=== PATIENT | male | born 1955 | race Caucasian/White ===

== ENCOUNTER → 2021-06-07 08:52 | Outpatient (BNVA) | payer MEDICARE, SELFPAY | PROVIDERS: PCP Family Medicine; Referring Provider Family Medicine; Visit Provider Internal Medicine Cardiovascular Disease | DX: I71.2 Thoracic aortic aneurysm, without rupture (principal) | CPT/HCPCS: 93005 ==

== ENCOUNTER → 2021-06-07 12:55 | Outpatient (REF) | payer MEDICARE, SELFPAY ==
--- NOTE | 2021-06-07 13:03 | CA_ITS ---
Transthoracic Echocardiogram Patient (Last, First, Middle): Andrew Abreu L Gender: Male Date of : 1955 Age: 66 Procedure Date: 06/07/2021 Procedure Type: Transthoracic Echocardiogram Location: OP Height: 172.72 cm Weight: 74.84 kg BSA: 1.88 m2 Heart Rate: bpm BP: 118 / 77 mmHg Yardage Control Clerk: AKOSUA/TOPHER Referring MD: Brandon Hernandez MD Symptoms: I71.2 - Thoracic aortic aneurysm, without rupture Study Quality: Fair ECG Rhythm: Sinus Conclusions: - The left ventricular systolic function is normal. The calculated ejection fraction is 60% by biplane method. - There is moderate calcification of the aortic valve. - There is moderate mitral annular calcification. - There is mild dilatation of the ascending aorta measuring 4.00 cm. Findings Left Ventricle Normal left ventricular cavity size. There is normal left ventricular wall thickness. The left ventricular systolic function is normal. The calculated ejection fraction is 60% by biplane method. There is no evidence of regional wall motion abnormalities. Diastolic function is normal for age. Right Ventricle Normal right ventricular cavity size. There is low normal right ventricular systolic function. Atria Both atria are normal in size. Aortic Valve There is moderate calcification of the aortic valve. The peak aortic velocity is 2.02 m/s with a calculated peak gradient of 16 mmHg. The mean gradient is 6 mmHg. The aortic valve area is 2.92 cm2. There is trace (trivial) aortic valve regurgitation. Mitral Valve There is moderate mitral annular calcification. There is mild mitral valve regurgitation. There is no mitral valve stenosis. Pulmonic Valve The pulmonic valve was not well visualized. Tricuspid Valve Normal tricuspid valve structure. There is trace tricuspid valve regurgitation. The pulmonary artery systolic pressure is normal. Great Vessels There is mild dilatation of the ascending aorta measuring 4.00 cm. Venous The inferior vena cava is normal in size and collapses greater than 50% with inspiration. Pericardium/Pleural There is no evidence of pericardial effusion. Prior Study Comparison No significant change compared to prior study dated: 06/15/2020. Measurements 2D Linear Measurements IVSd: 0.83 0.6-0.9/0.6-1.0 cm LVIDd: 4.08 3.9-5.3/4.2-5.9 cm LVIDd Index: 2.17 2.4-3.2/2.2-3.1 cm/m2 LVIDs: 2.88 2.0-3.6 cm LVPWd: 0.98 0.7-1.1 cm Ao Root: 3.00 2.1-3.5 cm LA Diam: 3.00 2.7-3.8/3.0-4.0 cm LAIDs Index: 1.60 1.5-2.3 cm/m2 LV Mass: 142.74 67-162/88-224 g LV Mass Index: 75.93 43-95/49-115 g/m2 LVOT Diam: 2.20 3.0+(-)1.3 cm 2D Systolic Function EF 4C: 51.50 >55% EF 2C: 66.90 >55% EF BiP: 59.70 >55% Mitral Valve MV Pk E: 0.75 MV PK A: 0.62 MV Decel Time: 377.00 E/A: 1.20 E'Lateral: 14.60 E'Medial: 9.57 E/E' Med: 7.80 E/E' Lat: 5.10 PHT: 110.00 MVA PHT: 2.00 Decel [place]: 1.98 Aortic Valve AoV Pk Michael: 2.02 AoV Mn Michael: 1.11 AoV VTI: 0.36 AoV Pk Grad: 16.00 Aov Mn Grad: 6.00 EUGENE Cont.VTI: 2.92 AI Pk Michael: 3.79 AI [place]: 2.14 LVOT LVOT Pk Michael: 1.47 LVOT Mn Michael: 0.82 LVOT VTI: 0.28 LVOT Pk Grad: 9.00 LVOT Mn Grad: 4.00 LVOT Diam: 2.20 LVOT Area: 3.80 Diastolic Function MV Pk E: 0.75 MV Pk A: 0.62 E/A: 1.20 E'Medial: 9.57 E/E' Med: 7.80 E' Laterial: 14.60 E/E' Lat: 5.10 Tricuspid Valve TR Pk Michael: 2.19 TR Pk Grad: 19.00 RA Press: 3.00 RVSP: 22.00 Great Vessels Aorta Ao Root-2D: 3.00 2.0-3.7 cm Ao Asc: 4.00 2.1-3.4 cm Ao Arch: 3.00 Updated in Other Vendor System with Status of Final Checo Sanders MD electronically signed on 06/09/2021 11:46:32 AM with status of Final
== END ==
LOC: HO.CARD 12:55
PROVIDERS: Visit Provider Internal Medicine Cardiovascular Disease
DX: Z01.818 Encounter for other preprocedural examination (principal); I71.2 Thoracic aortic aneurysm, without rupture; I25.10 Atherosclerotic heart disease of native coronary artery without angina pectoris
CPT/HCPCS: 93005; 93306; 99212

== ENCOUNTER → 2021-06-14 08:59 | Outpatient (REF) | payer MEDICARE, SELFPAY ==
--- NOTE | ~2021-06-14 | NM_ITS ---
Myocardial perfusion study Indication: Preoperative cardiovascular risk patient with prior coronary bypass grafting to evaluate for myocardial ischemia Technique: The patient was brought in for a Lexiscan perfusion study on 06/14/2021. Patient performed low-level exercise and was injected 0.4 mg of Lexiscan intravenously. Within a minute of injection, 25 mCi of sestamibi was given intravenously. Images were obtained using the SPECT gamma camera interlaced with the gating device. Images were obtained in supine position. Resting perfusion study was performed on 06/15/2021. Patient was administered 25 mCi of sestamibi intravenously at rest. Images were then obtained in supine position. Images obtained with and without CT attenuation. Total DLP 74 mGy-cm. Images were processed with the software and compared side to side in short axis, horizontal long axis and vertical long axis views. Findings: The stress perfusion study showed nonattenuated images show minimally reduced uptake in the basal inferoseptal region of the LV myocardium. Remainder of the LV myocardium is normally perfused. Attenuation corrected images show normal uptake of radiotracer in all segments of LV myocardium. The gated study shows normal LV systolic function with calculated LVEF of 70%. LV cavity is normal in size. The gated study shows normal systolic wall thickening and contraction of segments. Resting study shows no change in perfusion pattern compared to stress perfusion study. Gating at rest reveals normal systolic wall motion with ejection fraction at 57%. The findings are consistent with normal myocardial perfusion. NM/NM jack perf SPECT rest & str Impression: 1. Myocardial perfusion imaging study shows normal myocardial perfusion 2. Gated LVEF is 70% 3. Transient ischemic dilatation not present EKG is nondiagnostic for ischemia
--- NOTE | 2021-06-14 09:04 | CA_ITS ---
Acquisition Time: 2021-06-14 09:13:35 Total Exercise Time: 00:02:00 Test Indications: PREOP Medications: SEE CHART Protocol: LEXISCAN Max HR: 097 BPM 62% of Pred: 154 BPM Max BP: 118/060 mmHG Max Work Load: 1.0 METS Pharmacological stress test using Lexiscan while sitting and kicking his feet. Pt tolerated well, denies any anginal sx. EKG with isolated PVC's. Non-diagnostic for ischemia. Nuclear images to follow. Normotensive response to test. Test reviewed with Dr. Hernandez. Referred By: Brandon Hernandez Overread By: Sandra Lugo NP
== END ==
LOC: HO.CARD 08:59
PROVIDERS: PCP Family Medicine; Visit Provider Internal Medicine Cardiovascular Disease
DX: Z01.811 Encounter for preprocedural respiratory examination (principal); I25.10 Atherosclerotic heart disease of native coronary artery without angina pectoris
CPT/HCPCS: 78452; 93017; A9500; J0280; J2785

== ENCOUNTER 2021-11-01 07:57 | Outpatient (REF) | payer MEDICARE, SELFPAY | END 2021-11-01 07:58 | disposition home or self-care (01) | LOC: HO.HMGCLDS 07:57 | PROVIDERS: PCP Family Medicine; Visit Provider Internal Medicine | DX: Z20.822 Contact with and (suspected) exposure to COVID-19 (principal) | CPT/HCPCS: C9803; U0003; U0005 ==

== ENCOUNTER → 2022-06-07 08:24 | Outpatient (BNVA) | payer MEDICARE, SELFPAY | PROVIDERS: PCP Family Medicine; Referring Provider Family Medicine; Visit Provider Internal Medicine Cardiovascular Disease | DX: I25.10 Atherosclerotic heart disease of native coronary artery without angina pectoris (principal); I71.2 Thoracic aortic aneurysm, without rupture; Z79.82 Long term (current) use of aspirin; Z79.899 Other long term (current) drug therapy | CPT/HCPCS: 93005; 99212 ==

== ENCOUNTER → 2023-05-20 07:43 | Outpatient (REF) | payer MEDICARE, SELFPAY ==
--- NOTE | 2023-05-20 07:45 | CA_ITS ---
Transthoracic Echocardiogram Patient (Last, First, Middle): Andrew Abreu L Gender: Male Date of : 1955 Age: 68 Procedure Date: 05/20/2023 Procedure Type: Transthoracic Echocardiogram Location: OP Height: 172.72 cm Weight: 77.11 kg BSA: 1.91 m2 Heart Rate: 58 bpm BP: 125 / 70 mmHg Instructor Dramatic Arts: TEO Referring MD: Brandon Hernandez MD Symptoms: I71.2 - Thoracic aortic aneurysm, without rupture Study Quality: Fair ECG Rhythm: Bradycardia Conclusions: - The left ventricular systolic function is normal. The visually estimated ejection fraction is between 60-65%. - There is mildly decreased right ventricular systolic function. - There is moderate calcification of the aortic valve. - There is moderate mitral annular calcification. - There is mild dilatation of the ascending aorta measuring 4.00 cm. Findings Left Ventricle Normal left ventricular cavity size. There is mildly increased left ventricular wall thickness. The left ventricular systolic function is normal. The visually estimated ejection fraction is between 60-65%. There is no evidence of regional wall motion abnormalities. Diastolic function is normal for age. LV peak GLS -18.6%. Right Ventricle Normal right ventricular cavity size. There is mildly decreased right ventricular systolic function. Atria Both atria are normal in size. Aortic Valve There is moderate calcification of the aortic valve. There is no aortic valve stenosis. Trace to mild aortic regurgitation. Mitral Valve There is moderate mitral annular calcification. There is mild mitral valve regurgitation. There is no mitral valve stenosis. Pulmonic Valve The pulmonic valve is likely normal. Tricuspid Valve There is mild tricuspid valve regurgitation. There is no evidence of pulmonary hypertension. Great Vessels The aortic arch is normal in size. There is mild dilatation of the ascending aorta measuring 4.00 cm. Venous The inferior vena cava is normal in size and collapses greater than 50% with inspiration. Pericardium/Pleural There is no evidence of pericardial effusion. Prior Study Comparison No significant change compared to prior study dated: 06/07/2021. Measurements 2D Linear Measurements IVSd: 1.06 0.6-0.9/0.6-1.0 cm LVIDd: 4.85 3.9-5.3/4.2-5.9 cm LVIDd Index: 2.54 2.4-3.2/2.2-3.1 cm/m2 LVIDs: 3.02 2.0-3.6 cm LVPWd: 1.02 0.7-1.1 cm LA Diam: 3.90 2.7-3.8/3.0-4.0 cm LAIDs Index: 2.04 1.5-2.3 cm/m2 LV Mass: 227.48 67-162/88-224 g LV Mass Index: 119.10 43-95/49-115 g/m2 LVOT Diam: 2.10 3.0+(-)1.3 cm 2D Systolic Function EF 4C: 54.80 >55% EF 2C: 56.60 >55% Mitral Valve MV VTI: 0.40 MV Pk Michael: 1.08 MV Mn Michael: 0.68 MV Pk Grad: 5.00 MV Mn Grad: 2.00 MV Pk E: 1.16 MV PK A: 0.83 MV Decel Time: 203.00 E/A: 1.40 E'Lateral: 10.80 E'Medial: 9.03 E/E' Med: 12.80 E/E' Lat: 10.70 PHT: 60.00 MVA PHT: 3.67 MVA Continuity: 2.42 Decel [place]: 5.72 Aortic Valve AoV Pk Michael: 1.91 AoV Mn Michael: 1.32 AoV VTI: 0.45 AoV Pk Grad: 15.00 Aov Mn Grad: 8.00 EUGENE Cont.VTI: 2.14 AI Pk Michael: 3.79 AI [place]: 1.92 LVOT LVOT Pk Michael: 1.15 LVOT Mn Michael: 0.79 LVOT VTI: 0.28 LVOT Pk Grad: 5.00 LVOT Mn Grad: 3.00 LVOT Diam: 2.10 LVOT Area: 3.46 Diastolic Function MV Pk E: 1.16 MV Pk A: 0.83 E/A: 1.40 E'Medial: 9.03 E/E' Med: 12.80 E' Laterial: 10.80 E/E' Lat: 10.70 Right Ventricle TAPSE (mm): 16.90 TVS' Michael: 7.38 Tricuspid Valve TR Pk Michael: 2.24 TR Pk Grad: 20.00 RA Press: 3.00 RVSP: 23.00 Great Vessels Aorta Sinus of Valsalva: 3.40 2.0-3.5 cm Ao Asc: 4.00 2.1-3.4 cm Pulmonary Valve PV Pk Michael: 1.09 Peak PV Grad: 5.00 Updated in Other Vendor System with Status of Final Checo Sanders MD electronically signed on 05/21/2023 12:30:25 PM with status of Final
== END ==
LOC: HO.CARD 07:43
PROVIDERS: PCP Family Medicine; Visit Provider Internal Medicine Cardiovascular Disease
DX: I71.20 Thoracic aortic aneurysm, without rupture, unspecified (principal)
CPT/HCPCS: 93306; 93356

== ENCOUNTER 2023-06-24 14:26 | Outpatient (AMB) | payer MEDICARE, SELFPAY ==
[2023-06-24 14:30] VITALS: BP 120/70; PULSE 64; BMI 26.8
--- NOTE | 2023-06-24 14:30 | A.OFFVIS_ITS ---
Intake Vital Signs 06/24/23 14:30 Height 5 ft 8 in Weight 176 lb 5.917 oz BMI 26.8 BP 120/70 Blood Pressure Location Lt brachial Position Sitting Pulse 64 Intake Visit Reasons: 1 year follow up Intake Note: 1 year f/u Skid Strapper Required: No Allergies penicillin G Allergy (Unknown, Verified 06/24/23 14:39) rash penicillin V Allergy (Unknown, Verified 06/24/23 14:39) rash, itchy Penicillins [PENICILLINS] Allergy (Unknown, Verified 06/24/23 14:39) RASH, ITCHY Medication List - Last Reconciled 06/24/23 by Brandon Hernandez MD acetaminophen (Tylenol Extra Strength) 500 mg PO Q6H PRN aspirin (Adult Aspirin Regimen) 81 mg PO DAILY cholecalciferol (vitamin D3) 50 mcg PO DAILY coQ10 (ubiquinol) 200 mg PO .QOD ezetimibe (Zetia) 10 mg PO DAILY fluticasone propionate 50 mcg/actuation 1 spray intranasal DAILY mecobalamin (vitamin B12) 2,500 mcg PO DAILY rosuvastatin 10 mg PO BEDTIME sildenafil (Viagra) 50 mg PO DAILY PRN HPI HPI Comments History of Present Illness Details Andrew comes for follow-up. He continues to remain very active. Recent echocardiogram shows normal systolic function was stable ascending aortic aneurysm. Most recent LDL was 72 mg/dL. Takes all his medications. He denies any exertional chest pain or shortness of breath. Denies any prolonged palpitation irregular heartbeat. Denies any orthopnea, PND, leg edema. No lightheadedness, syncope. [facility] Medical History CAD (coronary artery disease) Hyperlipidemia Thoracic aortic aneurysm Surgical History History of total left knee replacement S/P CABG x 4 Family History Mother Dementia Father Alzheimer disease Social History Alcohol intake: current Alcohol intake frequency: a few times a week Alcohol type: beer and wine Patient Tobacco Use Status: Never used Tobacco Review of Systems ENT Reports dizziness Card Denies chest pain, Denies chest pain at rest, Denies chest pain with activity, Denies rapid heart rate, Denies pedal edema, Denies edema, Denies leg edema, Denies lightheadedness, Denies palpitations, Denies dyspnea, Denies dyspnea on exertion and Denies orthopnea Resp Denies cough, Denies dyspnea and Denies dyspnea on exertion GI Denies hematochezia and Denies change in stool character Musc Denies abnormal gait, Reports limited range of motion, Reports muscle cramps, Denies muscle weakness, Denies numbness, Denies radiating pain into limb, Denies stiffness and Denies tingling Neuro Denies abnormal gait, Reports dizziness, Denies numbness and Denies tingling Endo Denies palpitations Physical Exam Vital Signs: Last Vital Signs Pulse 64 06/24/23 14:30 BP 120/70 06/24/23 14:30 BMI result Body Mass Index 26.8 Const General: cooperative, comfortable, no acute distress, well developed, alert and awake Nutritional Appearance: average body habitus Orientation/consciousness: patient oriented x3 Limitations: no limitations Neck Neck: Yes trachea midline, Yes supple and Yes no JVD Resp Effort & Inspection: normal respiratory effort Auscultation: clear to auscultation bilaterally Cardio Jugular venous distension: no JVD Palpation: normal PMI Rate: regular rate Rhythm: regular rhythm Heart sounds: S1 normal heart sound present, S2 normal heart sound present and Murmur heart sound present systolic early, decrescendo, crescendo, harsh and at the right sternal border GI Auscultation: normal bowel sounds Skin General skin exam: no rashes or lesions noted Neuro General: patient oriented x3 and no focal motor deficits Extrem General: Yes no clubbing, cyanosis or edema Psych Appearance: grossly normal Office Procedures EKG Details: EKG shows normal sinus rhythm with normal EKG [id number], Complete Assessment & Plan Assessment & Plan (1) CAD (coronary artery disease): Code(s): I25.10 - Atherosclerotic heart disease of [place] coronary artery without angina pectoris Plan: CAD status post coronary artery bypass grafting with no current concerning symptoms. Signs and symptoms of angina were discussed advised to call me with any new symptoms. Continue aggressive medical therapy. Continue low-dose aspirin therapy for life. Target goal LDL less than 70 mg/dL. Advised to intensify lifestyle modification. Continue aggressive blood pressure control which is currently well optimized. Advised to monitor blood pressure at home maintain a log. Goal blood pressure less than 130/84. Advised to maintain activity level as tolerated. (2) Thoracic aortic aneurysm: Comment: 4 cm Code(s): I71.2 - Thoracic aortic aneurysm, without rupture Plan: Thoracic aortic aneurysm which is mild at 4 cm. Advised to monitor by echocardiogram on annual basis. No interventions required at this point time. Continue aggressive vascular risk factor modification above. Avoid sudden strenuous isometric exercise. Follow up in the clinic in 1 year's time, sooner p.r.n.. Thank you for allowing me to partake in his care Orders: Orders CA echo transthoracic complete 50 Weeks I71.2 - Thoracic aortic aneurysm, without rupture Coding Level of Care Code Est Pt Level 4 (03286) Diagnoses CAD (coronary artery disease) I25.10 Thoracic aortic aneurysm I71.2 CPT Codes EKG - CPT: 58440-[id number], Complete ([id number])
== END 2023-06-24 15:01 | disposition home or self-care (01) ==
PROVIDERS: Visit Provider Internal Medicine Cardiovascular Disease
DX: I25.10 Atherosclerotic heart disease of native coronary artery without angina pectoris (principal); I71.20 Thoracic aortic aneurysm, without rupture, unspecified
CPT/HCPCS: 93010; 99214

== ENCOUNTER → 2023-06-24 14:26 | Outpatient (BNVA) | payer MEDICARE, SELFPAY | PROVIDERS: Visit Provider Internal Medicine Cardiovascular Disease | DX: I25.10 Atherosclerotic heart disease of native coronary artery without angina pectoris (principal); I71.20 Thoracic aortic aneurysm, without rupture, unspecified | CPT/HCPCS: 93005; 99212 ==

== ENCOUNTER 2024-03-18 06:29 | Outpatient (REF) | payer MEDICARE, SELFPAY ==
[2024-03-18 08:14] LABS: Cholesterol 138 mg/dL (<200); HDL Cholesterol 54 mg/dL (>40); LDL Cholesterol Calculated 69 mg/dL (<100); Triglycerides 75 mg/dL (<150)
== END 2024-03-18 06:30 | disposition home or self-care (01) ==
LOC: HO.LAB 06:29
PROVIDERS: Visit Provider Internal Medicine Cardiovascular Disease
DX: I25.10 Atherosclerotic heart disease of native coronary artery without angina pectoris (principal)
CPT/HCPCS: 36415; 80061

== ENCOUNTER → 2024-06-08 10:58 | Outpatient (REF) | payer MEDICARE, SELFPAY ==
--- NOTE | 2024-06-08 11:01 | CA_ITS ---
Transthoracic Echocardiogram Amended Patient (Last, First, Middle): Andrew Abreu L Gender: Male Date of : 1955 Age: 69 Procedure Date: 06/08/2024 Procedure Type: Transthoracic Echocardiogram Location: OP Height: 172. cm Weight: 79.38 kg BSA: 1.93 m2 Heart Rate: 63 bpm BP: 122 / 60 mmHg Spike Machine Operator: TEO Referring MD: Brandon Hernandez MD Symptoms: I71.2 - Thoracic aortic aneurysm, without rupture Study Quality: Fair ECG Rhythm: Sinus Conclusions: - The left ventricular systolic function is normal. The visually estimated ejection fraction is between 65-70%. - There is mild to moderately decreased right ventricular systolic function. - There is moderate calcification of the aortic valve. There is mild aortic valve stenosis. Appearance suggestive of bicuspid aortic valve. - There is severe mitral annular calcification. - There is mild dilatation of the ascending aorta measuring 3.80 cm. Findings Left Ventricle Normal left ventricular cavity size. There is moderately increased left ventricular wall thickness. The left ventricular systolic function is normal. The visually estimated ejection fraction is between 65-70%. There is no evidence of regional wall motion abnormalities. Diastolic function is normal for age. Right Ventricle Normal right ventricular cavity size. There is mild to moderately decreased right ventricular systolic function. Atria Both atria are normal in size. Aortic Valve There is moderate calcification of the aortic valve. There is mild aortic valve stenosis. There is trace (trivial) aortic valve regurgitation. Appearance suggestive of bicuspid aortic valve. Mitral Valve There is severe mitral annular calcification. There is no mitral valve regurgitation. There is no mitral valve stenosis. Pulmonic Valve The pulmonic valve is likely normal. Tricuspid Valve Normal tricuspid valve structure. There is mild tricuspid valve regurgitation. There is no evidence of pulmonary hypertension. Great Vessels The aortic annulus and sinuses of valsalva are normal in size. There is mild dilatation of the ascending aorta measuring 3.80 cm. Venous The inferior vena cava is normal in size and collapses greater than 50% with inspiration. Pericardium/Pleural There is no evidence of pericardial effusion. Prior Study Comparison Changes noted compared to prior study dated: 05/20/2023. see comment on aortic valve. Measurements 2D Linear Measurements IVSd: 1.37 0.6-0.9/0.6-1.0 cm LVIDd: 4.54 3.9-5.3/4.2-5.9 cm LVIDd Index: 2.35 2.4-3.2/2.2-3.1 cm/m2 LVIDs: 2.50 2.0-3.6 cm LVPWd: 1.27 0.7-1.1 cm LA Diam: 4.00 2.7-3.8/3.0-4.0 cm LAIDs Index: 2.07 1.5-2.3 cm/m2 LV Mass: 287.63 67-162/88-224 g LV Mass Index: 149.03 43-95/49-115 g/m2 LVOT Diam: 2.00 3.0+(-)1.3 cm 2D Systolic Function EF 4C: 73.50 >55% EF 2C: 68.10 >55% EF BiP: 71.10 >55% Mitral Valve MV Pk E: 1.04 MV PK A: 0.86 MV Decel Time: 287.00 E/A: 1.20 E'Lateral: 12.00 E'Medial: 9.14 E/E' Med: 11.40 E/E' Lat: 8.70 PHT: 84.00 MVA PHT: 2.62 Decel [place]: 3.63 Aortic Valve AoV Pk Michael: 2.34 AoV Mn Michael: 1.65 AoV VTI: 0.53 AoV Pk Grad: 22.00 Aov Mn Grad: 12.00 EUGENE Cont.VTI: 1.93 LVOT LVOT Pk Michael: 1.43 LVOT Mn Michael: 1.02 LVOT VTI: 0.32 LVOT Pk Grad: 8.00 LVOT Mn Grad: 5.00 LVOT Diam: 2.00 LVOT Area: 3.14 Diastolic Function MV Pk E: 1.04 MV Pk A: 0.86 E/A: 1.20 E'Medial: 9.14 E/E' Med: 11.40 E' Laterial: 12.00 E/E' Lat: 8.70 Right Ventricle TAPSE (mm): 15.20 TVS' Michael: 7.14 Tricuspid Valve TR Pk Michael: 2.10 TR Pk Grad: 18.00 RA Press: 3.00 RVSP: 21.00 Great Vessels Aorta Sinus of Valsalva: 3.10 2.0-3.5 cm Ao Asc: 3.80 2.1-3.4 cm Pulmonary Valve PV Pk Michael: 1.07 Peak PV Grad: 5.00 Updated in Other Vendor System with Status of Final Checo Sanders MD electronically signed on 06/09/2024 10:49:51 AM with status of Final
== END ==
LOC: HO.CARD 10:58
PROVIDERS: PCP Family Medicine; Visit Provider Internal Medicine Cardiovascular Disease
DX: I71.20 Thoracic aortic aneurysm, without rupture, unspecified (principal)
CPT/HCPCS: 93306

== ENCOUNTER → 2024-06-08 11:01 | Outpatient (BNV) | payer MEDICARE, SELFPAY | PROVIDERS: PCP Family Medicine; Visit Provider Internal Medicine | DX: I35.0 Nonrheumatic aortic (valve) stenosis (principal); I35.8 Other nonrheumatic aortic valve disorders; I34.81 Nonrheumatic mitral (valve) annulus calcification; I36.1 Nonrheumatic tricuspid (valve) insufficiency | CPT/HCPCS: 93306 ==

== ENCOUNTER 2024-06-25 10:31 | Outpatient (AMB) | payer MEDICARE, SELFPAY ==
[2024-06-25 10:46] VITALS: BP 116/66; PULSE 67; BMI 26.5
--- NOTE | 2024-06-25 10:46 | MHC.OFFVIS ---
Vital Signs 06/25/24 10:46 Height 5 ft 8 in Weight 174 lb 2.643 oz BMI 26.5 BP 116/66 Blood Pressure Location Lt brachial Position Sitting Pulse 67 Intake Visit Reasons: 1 year fu Intake Note: 1 year follow-up [facility] ekg after echo feeling good Supervisor Color Paste Mixing Required: No Allergies penicillin G Allergy (Unknown, Verified 06/24/23 14:39) rash penicillin V Allergy (Unknown, Verified 06/24/23 14:39) rash, itchy Penicillins [PENICILLINS] Allergy (Unknown, Verified 06/24/23 14:39) RASH, ITCHY atorvastatin Adverse Reaction (Intermediate, Verified 03/19/24 17:12) Terrible muscle and joint aches Medication List - Last Reconciled 06/25/24 by Brandon Hernandez MD acetaminophen (Tylenol Extra Strength) 500 mg PO Q6H PRN aspirin (Adult Aspirin Regimen) 81 mg PO DAILY cholecalciferol (vitamin D3) 50 mcg PO DAILY coQ10 (ubiquinol) 200 mg PO .QOD ezetimibe (Zetia) 10 mg PO DAILY fluticasone propionate 50 mcg/actuation 1 spray intranasal DAILY rosuvastatin 10 mg PO BEDTIME sildenafil (Viagra) 50 mg PO DAILY PRN HPI Comments Details: Andrew comes for follow-up. He is concerned about his echo finding of mild aortic stenosis. He has no new cardiac symptoms. Denies any exertional chest pain or shortness of breath overall he says he has been feeling very well. Last LDL 69 mg/dL. Denies any prolonged palpitation irregular heartbeat. Takes all his medications regularly. Exercise on a regular basis. REPLACED BY [facility] Medical History Hyperlipidemia Thoracic aortic aneurysm CAD (coronary artery disease) Surgical History History of total left knee replacement S/P CABG x 4 Family History Mother Dementia Father Alzheimer disease Social History Alcohol intake: current Alcohol intake frequency: a few times a week Alcohol type: beer and wine Patient Tobacco Use Status: Never used Tobacco Review of Systems Const Denies chills, Denies fatigue, Denies fever(s), Denies frequent falls, Denies weakness, Denies weight gain and Denies weight loss ENT Denies dizziness Card Denies chest pain, Denies leg edema, Denies lightheadedness, Denies palpitations, Denies dyspnea, Denies dyspnea on exertion, Denies orthopnea and Denies other (loss of consciousness) Resp Denies cough, Denies dyspnea and Denies dyspnea on exertion GI Denies hematochezia and Denies change in stool character Musc Denies abnormal gait, Denies muscle weakness, Denies numbness, Denies radiating pain into limb and Denies tingling Neuro Denies abnormal gait, Denies dizziness, Denies frequent falls, Denies numbness, Denies tingling and Denies weakness Endo Denies fatigue and Denies palpitations Physical Exam Vital Signs: Last Vital Signs Pulse 67 06/25/24 10:46 BP 116/66 06/25/24 10:46 BMI result Body Mass Index 26.5 Const General: cooperative, comfortable, no acute distress, well developed, alert and awake Nutritional Appearance: average body habitus Orientation/consciousness: patient oriented x3 Limitations: no limitations Neck Neck: Yes trachea midline, Yes supple and Yes no JVD Resp Effort & Inspection: normal respiratory effort Auscultation: clear to auscultation bilaterally Cardio Jugular venous distension: no JVD Palpation: normal PMI Rate: regular rate Rhythm: regular rhythm Heart sounds: S1 normal heart sound present, S2 normal heart sound present and Murmur heart sound present systolic early, decrescendo, crescendo, harsh and at the right sternal border Bruits: carotid bruit on the left GI Auscultation: normal bowel sounds Skin General skin exam: no rashes or lesions noted Neuro General: patient oriented x3 and no focal motor deficits Extrem General: Yes no clubbing, cyanosis or edema Psych Appearance: grossly normal Office Procedures EKG Details: EKG shows normal sinus rhythm [place] inferior [place]. [id number], Complete Assessment & Plan Assessment & Plan (1) CAD (coronary artery disease): Code(s): I25.10 - Atherosclerotic heart disease of [place] coronary artery without angina pectoris Category: Medical Plan: Coronary artery disease with prior coronary artery bypass grafting with myocardial perfusion imaging in 2020 showing normal myocardial perfusion. Continue aggressive medical therapy. Continue low-dose aspirin therapy for life. Continue dual therapy with rosuvastatin 10 and ezetimibe 10 mg daily which is tolerating well. Continue maintain activity level as tolerated. Advised to call me with any new symptoms. Patient does have left carotid bruit will suggest carotid duplex to rule out any significant stenosis. (2) Aortic stenosis: Code(s): I35.0 - Nonrheumatic aortic (valve) stenosis Category: Medical Plan: Aortic stenosis which is mild. No indication repair. We discussed pathophysiology of aortic stenosis. Follow-up echocardiogram in 1 year's time. Continue aggressive vascular risk factor modification above. Will follow up in the clinic in 1 year's time, sooner p.r.n.. Thank you for allowing me to partake in his care Orders: Orders US carotid duplex BI Today R09.89 - Other specified symptoms and signs involving the circulatory and respiratory systems CA echo transthoracic complete 1 Year I35.0 - Nonrheumatic aortic (valve) stenosis Coding Level of Care Code Est Pt Level 4 (78590) Diagnoses CAD (coronary artery disease) I25.10 Aortic stenosis I35.0 CPT Codes EKG - CPT: 16567-[id number], Complete ([id number])
== END 2024-06-25 11:10 | disposition home or self-care (01) ==
PROVIDERS: PCP Family Medicine; Visit Provider Internal Medicine Cardiovascular Disease
DX: I25.10 Atherosclerotic heart disease of native coronary artery without angina pectoris (principal); I35.0 Nonrheumatic aortic (valve) stenosis
CPT/HCPCS: 93010; 99214

== ENCOUNTER → 2024-06-25 10:31 | Outpatient (BNVA) | payer MEDICARE, SELFPAY | PROVIDERS: PCP Family Medicine; Visit Provider Internal Medicine Cardiovascular Disease | DX: I25.10 Atherosclerotic heart disease of native coronary artery without angina pectoris (principal); I35.0 Nonrheumatic aortic (valve) stenosis; R94.31 Abnormal electrocardiogram [ECG] [EKG] | CPT/HCPCS: 93005; 99212 ==

== ENCOUNTER 2024-07-14 09:48 | Outpatient (REF) | payer MEDICARE, SELFPAY ==
--- NOTE | ~2024-07-14 | US_ITS ---
EXAMINATION: US EXTRACRANIAL CAROTID DUPLEX, BILATERAL CLINICAL INFORMATION: Hyperlipidemia COMPARISON: None available. TECHNIQUE: Real-time ultrasound and Doppler techniques (integrating B-mode 2-D vascular images, Doppler spectral analysis and color-flow Doppler imaging) were utilized to interrogate the extracranial carotid arteries, the vertebral arteries and proximal subclavian arteries bilaterally. The degree of stenosis is determined by criteria similar to NASCET. FINDINGS: Right Side: 1. There is moderate atherosclerotic plaque seen in the bifurcation/proximal ICA region. 2. The common carotid artery PSV proximally is 104.5 cm/s and distally 96.5 cm/s. 3. The proximal internal carotid artery velocities are 139.9 cm/s systolic and 36.4 cm/s diastolic. 4. The proximal external carotid artery PSV is 68.9 cm/s. 5. The vertebral artery shows moderate flow. 6. The subclavian artery waveforms are triphasic. Left Side: 1. There is mild atherosclerotic plaque seen in the bifurcation/proximal ICA region. 2. The common carotid artery PSV proximally is 116.4 cm/s and distally 88.5 cm/s. 3. The proximal internal carotid artery velocities are 78.5 cm/s systolic and 25.0 cm/s diastolic. 4. The proximal external carotid artery PSV is 76.2 cm/s. 5. The vertebral artery shows antegrade flow. 6. The subclavian artery waveforms are triphasic. US/US carotid duplex BI IMPRESSION: 1. RIGHT: Moderate, hemodynamically significant stenosis of the proximal right internal carotid artery corresponding to a 50-79% stenosis by velocity criteria. 2. LEFT: Minimal, non-hemodynamically significant stenosis of the proximal left internal carotid artery corresponding to a 0-49% stenosis by velocity criteria.
== END 2024-07-14 09:49 | disposition home or self-care (01) ==
LOC: HO.US 09:48
PROVIDERS: PCP Family Medicine; Visit Provider Internal Medicine Cardiovascular Disease
DX: R09.89 Other specified symptoms and signs involving the circulatory and respiratory systems (principal)
CPT/HCPCS: 93880

== ENCOUNTER 2024-10-08 13:04 | Outpatient (AMB) | payer MEDICARE, SELFPAY ==
--- NOTE | 2024-10-08 13:19 | MHC.OFFVIS ---
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 Pt does have concerns about cognitive function and has had some testing and is wondering if the carotid stenosis could be attributing? 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 This was an incidental finding on routine surveillance workup by Cardiology. Of note he had an HI several years prior. He subsequently went underwent 4 vessel CABG. He has been followed by Cardiology for this. Had an incidental finding of a left carotid bruit. Subsequently underwent carotid ultrasound and now presents to us for vascular evaluation. In terms of his carotids he denies any lateralizing signs or symptoms, speech disturbances or visual changes. Of note he is being maintained on aspirin and dual agent cholesterol medication. [facility] Medical History Hyperlipidemia Thoracic aortic aneurysm CAD (coronary artery disease) Surgical History History of total left knee replacement S/P CABG x 4 Family History Mother Dementia Father Alzheimer disease Social History Alcohol intake: current Alcohol intake frequency: a few times a week Alcohol type: beer and wine Patient Tobacco Use Status: Never used Tobacco Review of Systems Const All systems reviewed & are unremarkable except as noted in HPI and below Reports no additional complaints ENT Reports Normal hearing present Card Denies chest pain, Denies chest pain at rest, Denies chest pain with activity and Denies pedal edema Resp Denies cough GI Denies abdominal pain Musc Denies abnormal gait, Denies muscle cramps and Denies radiating pain into limb Skin/Breast Denies skin ulcer and Denies wounds Neuro Reports Normal hearing present and Denies abnormal gait Psych Reports no additional complaints Physical Exam Vital Signs: Last Vital Signs BP 108/66 10/08/24 13:28 BMI result Body Mass Index 26.5 Const General: cooperative, healthy appearing and comfortable Orientation/consciousness: oriented to person, oriented to place and oriented to time HEENT Head: Yes normal to inspection Neck Neck: Yes normal visual inspection Carotids: no bruits Chest Chest palpation & inspection: normal inspection of the chest Resp Effort & Inspection: normal respiratory effort and able to speak in complete sentences Auscultation: clear to auscultation bilaterally, no crackles, no rales, no rhonchi and no wheezes Cardio Rate: regular rate Rhythm: regular rhythm Heart sounds: S1 normal heart sound present and S2 normal heart sound present Bruits: no carotid bruits Peripheral pulses: Peripheral pulses 2+ throughout GI Inspection: Yes normal to inspection Skin Wounds: no wounds Hair: normal Neuro General: oriented to person, oriented to place and oriented to time Cranial nerves: Yes CN's II-XII intact bilaterally and Yes Normal hearing present Cognition (Neuro): normal cognition Motor exam (neuro): 5/5 motor strength present throughout Extrem Other: venous exam: No significant superficial varicosities or spider telangiectasias, minimal edema General: No clubbing, No cyanosis and No edema Psych Appearance: grossly normal Mental Status: mental status grossly normal Speech and movement: Normal speech and movement present Results Reviewed Results Reviewed: Noninvasive carotid testing dated 07/14/2024 demonstrates right side 50-79% stenosis with a peak systolic of only 139. Left-sided 0-49%. In terms of the right side I do suspect it is more to the 40-50% side stenosis. Written report and images were reviewed. Assessment & Plan Assessment & Plan (1) Right cavernous carotid stenosis: Code(s): I65.21 - Occlusion and stenosis of right carotid artery Category: Medical Plan: In short patient has asymptomatic carotid disease. We have reviewed signs and symptoms of a stroke. We also discussed risk factor modification inclusive a healthy diet low in cholesterol. The patient will follow up with us with surveillance ultrasound of the carotids 1 year. Should there be any changes or signs or symptoms of a stroke we will be happy to see them back sooner. Thank you for allowing us to participate in this patient's care. If there are any questions or concerns please do not hesitate to contact us. Orders: Orders US carotid duplex BI 1 Year I65.21 - Occlusion and stenosis of right carotid artery Coding Level of Care Code New Pt Level 4 (20460) Complex EM visit Add On G2211 Diagnoses Right cavernous carotid stenosis I65.21
[2024-10-08 13:20] VITALS: BP 114/62; BMI 26.5
[2024-10-08 13:28] VITALS: BP 108/66
== END 2024-10-08 13:53 | disposition home or self-care (01) ==
LOC: HO.HVS 13:05
PROVIDERS: PCP Family Medicine; Visit Provider Surgery Vascular Surgery
DX: I65.21 Occlusion and stenosis of right carotid artery (principal)
CPT/HCPCS: 99204; G2211

== ENCOUNTER → 2024-10-08 13:04 | Outpatient (BNVA) | payer MEDICARE, SELFPAY | PROVIDERS: PCP Family Medicine; Visit Provider Surgery Vascular Surgery | DX: I65.21 Occlusion and stenosis of right carotid artery (principal); I25.10 Atherosclerotic heart disease of native coronary artery without angina pectoris; I10 Essential (primary) hypertension; I71.20 Thoracic aortic aneurysm, without rupture, unspecified; E78.5 Hyperlipidemia, unspecified; Z95.1 Presence of aortocoronary bypass graft | CPT/HCPCS: 99202 ==

== ENCOUNTER 2025-06-16 06:28 | Outpatient (REF) | payer MEDICARE, SELFPAY ==
[2025-06-16 08:15] LABS: Cholesterol 142 mg/dL (<200); HDL Cholesterol 58 mg/dL (>40); Triglycerides 82 mg/dL (<150)
== END 2025-06-16 06:29 | disposition home or self-care (01) ==
LOC: HO.LAB 06:28
PROVIDERS: PCP Family Medicine; Visit Provider Internal Medicine Cardiovascular Disease
DX: I25.10 Atherosclerotic heart disease of native coronary artery without angina pectoris (principal); E78.5 Hyperlipidemia, unspecified
CPT/HCPCS: 36415; 80061

== ENCOUNTER → 2025-06-21 13:00 | Outpatient (REF) | payer MEDICARE, SELFPAY ==
--- NOTE | 2025-06-21 13:02 | CA_ITS ---
Transthoracic Echocardiogram Patient (Last, First, Middle): Andrew Abreu L Gender: Male Date of : 1955 Age: 70 Procedure Date: 06/21/2025 Procedure Type: Transthoracic Echocardiogram Location: OP Height: 175.26 cm Weight: 79.38 kg BSA: 1.95 m2 Heart Rate: bpm BP: 118 / 75 mmHg Pouncing Machine Operator: TOPHER Referring MD: Brandon Hernandez MD Symptoms: I35.0 - Nonrheumatic aortic (valve) stenosis Study Quality: Fair ECG Rhythm: Sinus Conclusions: - The left ventricular systolic function is normal. The calculated ejection fraction is 66% by biplane method. - There is moderate calcification of the aortic valve. There is mild aortic valve stenosis. - There is moderate mitral annular calcification. - There is mild dilatation of the ascending aorta measuring 4.00 cm. Findings Left Ventricle Normal left ventricular cavity size. The left ventricular systolic function is normal. The calculated ejection fraction is 66% by biplane method. There is no evidence of regional wall motion abnormalities. Diastolic function is normal for age. There is mild septal asymmetric hypertrophy. Right Ventricle Normal right ventricular cavity size. There is mild to moderately decreased right ventricular systolic function. Atria Both atria are normal in size. Aortic Valve There is moderate calcification of the aortic valve. There is mild aortic valve stenosis. There is mild aortic valve regurgitation. Mitral Valve There is moderate mitral annular calcification. There is trace mitral valve regurgitation. There is no mitral valve stenosis. Pulmonic Valve The pulmonic valve is likely normal. There is trace pulmonic valve regurgitation. Tricuspid Valve There is mild tricuspid valve regurgitation. There is no evidence of pulmonary hypertension. Great Vessels The aortic arch is normal in size. There is mild dilatation of the ascending aorta measuring 4.00 cm. Venous The inferior vena cava is normal in size and collapses greater than 50% with inspiration. Pericardium/Pleural There is no evidence of pericardial effusion. Prior Study Comparison No significant change compared to prior study dated: 06/08/2024. Measurements 2D Linear Measurements IVSd: 1.17 0.6-0.9/0.6-1.0 cm LVIDd: 4.26 3.9-5.3/4.2-5.9 cm LVIDd Index: 2.18 2.4-3.2/2.2-3.1 cm/m2 LVIDs: 2.72 2.0-3.6 cm LVPWd: 0.94 0.7-1.1 cm LA Diam: 3.20 2.7-3.8/3.0-4.0 cm LAIDs Index: 1.64 1.5-2.3 cm/m2 LV Mass: 188.67 67-162/88-224 g LV Mass Index: 96.75 43-95/49-115 g/m2 LVOT Diam: 2.10 3.0+(-)1.3 cm 2D Systolic Function EF 4C: 67.50 >55% EF 2C: 65.90 >55% EF BiP: 66.10 >55% Mitral Valve MV Pk E: 1.15 MV PK A: 1.03 MV Decel Time: 372.00 E/A: 1.10 E'Lateral: 10.20 E'Medial: 8.05 E/E' Med: 14.30 E/E' Lat: 11.30 PHT: 109.00 MVA PHT: 2.02 Decel [place]: 3.09 Aortic Valve AoV Pk Michael: 2.74 AoV Mn Michael: 1.79 AoV VTI: 0.55 AoV Pk Grad: 30.00 Aov Mn Grad: 16.00 EUGENE Cont.VTI: 1.79 LVOT LVOT Pk Michael: 1.38 LVOT Mn Michael: 0.87 LVOT VTI: 0.28 LVOT Pk Grad: 8.00 LVOT Mn Grad: 4.00 LVOT Diam: 2.10 LVOT Area: 3.46 Diastolic Function MV Pk E: 1.15 MV Pk A: 1.03 E/A: 1.10 E'Medial: 8.05 E/E' Med: 14.30 E' Laterial: 10.20 E/E' Lat: 11.30 Right Ventricle TAPSE (mm): 16.10 TVS' Michael: 6.85 Tricuspid Valve TR Pk Michael: 2.25 TR Pk Grad: 20.00 RA Press: 3.00 RVSP: 23.00 Great Vessels Aorta Sinus of Valsalva: 3.15 2.0-3.[address] [place]: 2.63 1.7-3.4 cm Ao Asc: 4.00 2.1-3.4 cm Ao Arch: 3.10 Updated in Other Vendor System with Status of Final Checo Sanders MD electronically signed on 06/22/2025 10:05:25 AM with status of Final
--- OUTSIDE RECORDS SUMMARY | 2025-06-21 13:44 | XMS_ITS | Clinical Summary ---
Author Organization [address] [facility] Address [address] [place] [address] Phone Care Team Providers Care Clinical Social Work Aide Name Role Phone Physician, Pcp Unknown Primary Care Provider Cristin vailable Social History Tobacco Use Types Packs/Day Years Used Date Smoking Tobacco: Never Assessed Sex and Gender Information Value Date Recorded Sex Assigned at Not on file Legal Sex Male 12:41 PM EST Gender Identity Not on file Sexual Orientation Not on file Plan of Treatment Health Maintenance Due Date Last Done Comments COVID-19 Vaccine (#1) 1960 DTaP,Tdap,and Td Vaccines (1 - Tdap) 1974 Pneumococcal Vaccine: 50+ Ye ars (1 of 2 - PCV) 1974 Zoster Vaccines (1 of 2) 1974 Depression Screening 12/02/2024 Abdominal Aortic Aneurysm (A AA) Screen 03/10/2025 Cholesterol Screening (Lipid Panel) 03/10/2025 Colorectal Cancer Screening: Colonoscopy 03/10/2025 Falls Risk Assessment 03/10/2025 Hepatitis C Screening 03/10/2025 Medicare Annual Wellness Visit 03/10/2025 Social Influencers of Health Screening 03/10/2025 Influenza Vaccine (#1) 2025 RSV Immunization Adult Patie nts (1 - 1-dose 75+ series) 2030 HIB Vaccines Aged Out No longer eligi ble based on patient's age to complete this topic HPV Vaccines Aged Out No longer eligi ble based on patient's age to complete this topic Hepatitis A Vaccines Aged Out No long er eligible based on patient's age to complete this topic Hepatitis B Vaccines Aged Out No long er eligible based on patient's age to complete this topic IPV Vaccines Aged Out No longer eligi ble based on patient's age to complete this topic MMR Vaccines Aged Out No longer eligi ble based on patient's age to complete this topic Meningococcal ACWY Vaccine Aged Out N o longer eligible based on patient's age to complete this topic Meningococcal B Vaccine Aged Out No l onger eligible based on patient's age to complete this topic RSV Immunization Patients Un liliya 20 months Aged Out No longer eligible b ased on patient's age to complete this topic Varicella Vaccines Aged Out No longer eligible based on patient's age to complete this topic Insurance MEDICARE [facility] Care Teams Clinical Social Work Aide Relationship Specialty Start Date End Date Physician, Pcp Unknown PCP - General 03/10/25
--- OUTSIDE RECORDS SUMMARY | 2025-06-21 13:44 | XMS_ITS | Patient Health Record ---
Author Organization [facility] Address [address] [place] [address] Care Team Providers Care Burrer Marker Axle Name Role Phone July(inactive) Mack KUMARI Primary Care Provider U Iron Flower Unavailable [phone] Allergies Allergen (clinical drug ingredient) Drug/Non Drug Allergy documented on EMR Reaction Allergy Type Onset Date Status Penicillin Unknown Drug Allergy Active Reason For Referral No Information Medications Medication SIG (Take, Route, Fr equency, Duration) Notes Start Date End Date Status Glucosamine Active Adrenal Active MoviPrep 100 GM as directed Orally a s directed for 1 dose 09/14/2015 Active Cytomel Active Testosterone Active Ibuprofen Active [place] Thyroid Activ e Fluticasone Propionate Active Hydrocortisone Valerate Active Problems Problem Type SNOMED Code ICD Code Onset Dates Problem Status W/U Status Risk Notes Problem [id number] Encounter for screening for malignant neoplasm of colon (Z12.11) Active confirmed Problem Preprocedural examination (380225274295767) Preprocedural examination (Z01.818) Active confirmed Problem [id number] Encounter for long-term (current) use of NSAIDs (Z79.1) Active confirmed Plan Of Treatment Pending Test Test Name Order Date GI BIOPSY 09/21/2015 Future Test Test Name Order Date COLONOSCOPY 09/13/2015 Insurance Providers Payer Name Payer Address Payer Phone Subscriber Number Group Number Insured Name Patient Relationship to Insured Coverage Start Date Coverage End Date [facility] [employer] [address] [place] [address] [phone] [id number] Self - patient is the insured Medical (General) History Medical History History ICD Code Screening colonoscopy 03/06/2006--negati ve except for internal hemorrhoids Arthritis in Knees --- he is being evalu ated for possible knee replacements Denies DC,DM,CVA,Lung disease,renal dise ase Hypothyroidism Mild asthma--- he does not use any medic ation for that Surgical History Surgery Date(Month/Year) knee surgery x 2 vasectomy
--- OUTSIDE RECORDS SUMMARY | 2025-06-21 13:45 | XMS_ITS | Patient Health Record ---
Author Organization [facility] Lilian veronica Gamaliel Address [address] [place] [address] Care Team Providers Care Sanitation Laborer Name Role Phone Remberto Dickson MD Primary Care Provider Maribeth Brown Unavailable [phone] Allergies Allergen (clinical drug ingredient) Drug/Non Drug Allergy documented on EMR Reaction Allergy Type Onset Date Status amoxicillin Amoxicillin rash, itchy Drug Allergy A ctive Reason For Referral No Information Medications Medication SIG (Take, Route, Frequency, Duration) Notes Start Date End Date Status Flonase 50 MCG/ACT 1 spray in each nost ril Nasally Once a day; Duration: 30 day(s) Active Probiotic - as directed Orally Active Zetia 10 MG 1 tablet Orally Once a day; Duration: 30 day(s) Active Aspir-81 81 MG 1 tablet Orally Once a day; Duration: 30 day(s) Active Ciclopirox 0.77 % 1 application to affected area Externally Twice a day; Duration: 365 days Active Crestor 10 MG Orally Active Tylenol Active Systane Active Ciclopirox Olamine 0.77 % 1 application to affected area Externally to feet Twice a day; Duration: 30 days Not-Taking Atorvastatin Calcium 80 MG 1 tablet Orally Once a day; Duration: 30 day(s) Not-Taking Social History Tobacco Use: Social History Observation Description Date Details (start date - stop date) Former Smoker NA - NA Tobacco Use/Smoking Question Answer Notes Are you a: former smoker Additional Findings: Tobacco Non-User Current no n-smoker Alcohol Screen Question Answer Notes Did you have a drink contain ing alcohol in the past year? Yes How often did you have a dri nk containing alcohol in the past year? Monthly or less (1 point) Points 1 Interpretation Negative Tobacco use other than smoking: Question Answer Notes Are you an other tobacco user? No Plan Of Treatment Pending Test Test Name Order Date X ray : Foot, left 3V 09/25/2019 X ray : Foot, right 3V 09/25/2019 Insurance Providers Payer Name Payer Address Payer Phone Subscriber Number Group Number Insured Name Patient Relationship to Insured Coverage Start Date Coverage End Date Medicare National [employer] [address] [place] [address] [id number] Andrew Abreu Self - patient is the insured [employer] [address] [place] [address] [phone] [id number] Andrew Abreu Self - patient is the insured Medical (General) History Medical History History ICD Code Arthritis Back,Hip,and Knee pain CAD (Cholesterol) Heart disease chronic sinusitis Raynauds syndrome Mumps Vascular grafts Transfusions Surgical History Surgery Date(Month/Year) quad bypass 05/2017 left knee arthroscopic 1999 vasectomy 1994
== END ==
LOC: HO.CARD 13:00
PROVIDERS: PCP Family Medicine; Visit Provider Internal Medicine Cardiovascular Disease
DX: I35.0 Nonrheumatic aortic (valve) stenosis (principal)
CPT/HCPCS: 93306

== ENCOUNTER → 2025-06-21 13:02 | Outpatient (BNV) | payer MEDICARE, SELFPAY | PROVIDERS: PCP Family Medicine; Visit Provider Internal Medicine | DX: I42.2 Other hypertrophic cardiomyopathy (principal); I35.2 Nonrheumatic aortic (valve) stenosis with insufficiency; I34.81 Nonrheumatic mitral (valve) annulus calcification; I36.1 Nonrheumatic tricuspid (valve) insufficiency | CPT/HCPCS: 93306 ==

== ENCOUNTER 2025-06-24 12:17 | Outpatient (AMB) | payer MEDICARE, SELFPAY ==
--- NOTE | 2025-06-24 12:26 | A.OFFVIS_ITS ---
Vital Signs 06/24/25 12:27 Height 5 ft 8 in Weight 174 lb 2.643 oz BMI 26.5 BP 114/64 Blood Pressure Location Lt brachial Position Sitting Pulse 71 Intake Visit Reasons: 1 yr fu after echo Intake Note: 1 year follow-up with ekg after echo feeling good Mechanical Manufacturing Engineer Required: No Allergies penicillin G Allergy (Unknown, Verified 10/08/24 13:25) rash penicillin V Allergy (Unknown, Verified 10/08/24 13:25) rash, itchy Penicillins (PENICILLINS) Allergy (Unknown, Verified 10/08/24 13:25) RASH, ITCHY atorvastatin Adverse Reaction (Intermediate, Verified 10/08/24 13:25) Terrible muscle and joint aches Medication List - Last Reconciled 06/24/25 by Brandon Hernandez MD acetaminophen (Tylenol Extra Strength) 500 mg PO Q6H PRN aspirin (Adult Aspirin Regimen) 81 mg PO DAILY cholecalciferol (vitamin D3) 50 mcg PO DAILY coQ10 (ubiquinol) 200 mg PO .QOD ezetimibe (Zetia) 10 mg PO DAILY rosuvastatin 10 mg PO BEDTIME sildenafil (Viagra) 50 mg PO DAILY PRN HPI Comments Details: Andrew comes for follow-up. He has not noticed any new cardiac symptoms. Continues to remain active although is back pain was limiting him. He denies any exertional chest pain, shortness of breath. No orthopnea, PND, leg edema. No prolonged palpitation irregular heartbeat. No neurologic symptoms. Takes all his medications. Last LDL of 68 mg/dL. 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 4 Family History Mother Dementia Father Alzheimer disease Social History Alcohol intake: current Alcohol intake frequency: a few times a week Alcohol type: beer and wine Patient Tobacco Use Status: Never used Tobacco Review of Systems Const Denies chills, Denies fatigue, Denies fever(s), Denies frequent falls, Denies weakness, Denies weight gain and Denies weight loss ENT Denies dizziness Card Denies chest pain, Denies leg edema, Denies lightheadedness, Denies palpitations, Denies dyspnea, Denies dyspnea on exertion, Denies orthopnea and Denies other (loss of consciousness) Resp Denies cough, Denies dyspnea and Denies dyspnea on exertion GI Denies hematochezia and Denies change in stool character Musc Denies abnormal gait, Denies muscle weakness, Denies numbness, Denies radiating pain into limb and Denies tingling Neuro Denies abnormal gait, Denies dizziness, Denies frequent falls, Denies numbness, Denies tingling and Denies weakness Endo Denies fatigue and Denies palpitations Physical Exam Vital Signs: Last Vital Signs Pulse 71 06/24/25 12:27 BP 114/64 06/24/25 12:27 BMI result Body Mass Index 26.5 Const General: cooperative, comfortable, no acute distress, well developed, alert and awake Nutritional Appearance: average body habitus Orientation/consciousness: patient oriented x3 Limitations: no limitations Neck Neck: Yes trachea midline, Yes supple and Yes no JVD Resp Effort & Inspection: normal respiratory effort Auscultation: clear to auscultation bilaterally Cardio Jugular venous distension: no JVD Palpation: normal PMI Rate: regular rate Rhythm: regular rhythm Heart sounds: S1 normal heart sound present, S2 normal heart sound present and Murmur heart sound present systolic early, decrescendo, crescendo, harsh and at the right sternal border Bruits: carotid bruit on the left GI Auscultation: normal bowel sounds Skin General skin exam: no rashes or lesions noted Neuro General: patient oriented x3 and no focal motor deficits Extrem General: Yes no clubbing, cyanosis or edema Psych Appearance: grossly normal Office Procedures EKG Details: EKG shows normal sinus rhythm with inferior infarct pattern [id number]-[id number], Complete Assessment & Plan Assessment & Plan (1) CAD (coronary artery disease): Code(s): I25.10 - Atherosclerotic heart disease of [place] coronary artery without angina pectoris Category: Medical Plan: Diffuse vascular disease in this elderly gentleman. Clinically doing very well at this point time. Currently on good medical therapy. He has no cardiovascular symptoms. Continue current lifestyle and activity level. Continue lifelong aspirin therapy. Continue high statin therapy with ezetimibe with well optimized LDL. Blood pressure is currently well optimized. He also has carotid disease which she is followed with vascular surgery and advised to continue follow with vascular surgery for the same. (2) Aortic stenosis: Code(s): I35.0 - Nonrheumatic aortic (valve) stenosis Category: Medical Plan: Aortic stenosis which is mild. Continue aggressive vascular risk factor modification above. No interventions required per se. Follow-up echocardiogram in 1 year's time. (3) Thoracic aortic aneurysm: Comment: 4 cm Code(s): I71.2 - Thoracic aortic aneurysm, without rupture Category: Medical Plan: Mild thoracic aortic aneurysm most likely atherosclerotic in nature. Has remained stable. Follow-up echocardiogram next year. Continue aggressive vascular risk factor modification. Advised to avoid sudden strenuous isometric exercise. Will follow up in the clinic in 1 year's time, sooner p.r.n.. Thank you for allowing me to partake in his care Orders: Orders CA echo transthoracic complete 1 Year I35.0 - Nonrheumatic aortic (valve) stenosis Coding Level of Care Code Est Pt Level 4 (27533) Complex EM visit Add On G2211 Diagnoses CAD (coronary artery disease) I25.10 Aortic stenosis I35.0 Thoracic aortic aneurysm I71.2 CPT Codes EKG - CPT: 02771-[id number], Complete ([id number])
[2025-06-24 12:27] VITALS: BP 114/64; PULSE 71; BMI 26.5
--- OUTSIDE RECORDS SUMMARY | 2025-06-24 12:47 | XMS_ITS | Clinical Summary ---
Author Organization [address] [facility] Address [address] [place] [address] Phone Care Team Providers Care Truck Switcher Name Role Phone Physician, Pcp Unknown Primary [...] age to complete this topic Insurance MEDICARE [facility] Care Teams Truck Switcher Relationship Specialty Start Date End Date Physician, Pcp Unknown PCP - General 03/10/25
--- OUTSIDE RECORDS SUMMARY | 2025-06-24 12:47 | XMS_ITS | Clinical Summary ---
Author Organization [facility] Address [address] [place] [address] Phone Care Team Providers Care Surface Lay Out Technician Name Role Phone Pcp, Unknown Primary Care Provider Unavailabl e Allergies Active Allergy Reactions Criticality Noted Date Comments Penicillins 05/02/2020 Medications rosuvastatin (CRESTOR) 10 MG tablet Take 10 mg by mouth daily. Active ezetimibe (ZETIA) 10 mg tablet Take 10 mg by mouth daily. Active Active Problems No known active problems Social History Tobacco Use Types Packs/Day Years Used Date Smoking Tobacco: Never Smokeless Tobacco: Never Alcohol Use Standard Drinks/Week Comments Yes 0 (1 standard drink = 0.6 oz pur e alcohol) rare Education Answer Date Recorded Are you interested in more education? Not on razia e 03/29/2023 Are you concerned about learning? Not on file 03/29/2023 No 03/29/2023 No 03/29/2023 Digital Access Answer Date Recorded No 04/27/2023 No 04/27/2023 No 04/27/2023 Reliable internet access at home? Not on file 04/27/2023 Device with a working camera? Not on file Sex and Gender Information Value Date Recorded Sex Assigned at Not on file Legal Sex Male 9:14 AM EDT Gender Identity Not on file Sexual Orientation Not on file Last Filed Vital Signs Vital Sign Reading Time Taken Comments Blood Pressure - - Pulse - - Temperature - - Respiratory Rate - - Oxygen Saturation - - Inhaled Oxygen Concentration - - Weight 74.8 kg (165 lb) 05/02/2020 11:06 AM EDT Height 175.3 cm (5' 9 ) 05/02/2020 11:06 AM EDT Body Mass Index 24.37 05/02/2020 11:06 AM EDT Plan of Treatment Health Maintenance Due Date Last Done Comments LIPID PANEL 1955 DEPRESSION SCREENING 1967 HEPATITIS C SCREENING 1973 COLOGUARD 2000 COLONOSCOPY 2000 COLORECTAL CANCER SCREENING 2000 FIT TEST 2000 FOBT 2000 SIGMOIDOSCOPY 2000 VIRTUAL COLONOSCOPY 2000 PNEUMOCOCCAL VACCINES (50+ y ears) (1 of 1 - PCV) 2005 ZOSTER VACCINES (1 of 2) 2005 COVID-19 VACCINE (2 - 2023-2 5 season) 2024 02/26/2021 Adult Td,Tdap Booster 07/09/2028 07/09/2018 RSV VACCINE (1 - 1-dose 75+ series) 2030 SMOKING STATUS SCREENING (On ce After 26 Yrs) Completed 05/02/2020 HEPATITIS A VACCINES Aged Out No long er eligible based on patient's age to complete this topic HIB VACCINES Aged Out No longer eligi ble based on patient's age to complete this topic MENINGOCOCCAL VACCINES (ACWY) Aged Out No longer eligible based on patient's age to complete this topic MENINGOCOCCAL VACCINES (B) Aged Out N o longer eligible based on patient's age to complete this topic Medical Devices Not on file Insurance MEDICARE PART A & B [employer]OSS MEDEX SUPPLEMENT MEDICARE PART A & B [email or web address] MEDEX SUPPLEMENT MEDICARE PART A & B [email or web address] MEDEX SUPPLEMENT MEDICARE PART A & B [facility] MEDEX SUPPLEMENT MEDICARE PART A & B [email or web address] MEDEX SUPPLEMENT MEDICARE PART A & B [email or web address] MEDEX SUPPLEMENT MEDICARE PART A & B [email or web address] MEDEX SUPPLEMENT MEDICARE PART A & B [email or web address] MEDEX SUPPLEMENT MEDICARE PART A & B [employer]OSS MEDEX SUPPLEMENT Care Teams Surface Lay Out Technician Relationship Specialty Start Date End Date Pcp, Unknown PCP - General 05/02/20 Additional Source Comments The information contained in this document represents components of the legal health record. It is not the complete legal health record.[facility]
--- OUTSIDE RECORDS SUMMARY | 2025-06-24 12:47 | XMS_ITS | Patient Health Record ---
Author Organization [facility] Address [address] [place] [address] Care Team Providers Care Wireless Sales Manager Name Role Phone July(inactive) Mack KUMARI Primary Care Provider U Iron Flower Unavailable [phone] Allergies Allergen (clinical drug ingredient) Drug/Non Drug [...] Active Cytomel Active Testosterone Active Ibuprofen Active [place] Thyroid Activ e Fluticasone Propionate Active Hydrocortisone Valerate Active Problems Problem Type SNOMED Code ICD Code Onset Dates Problem Status W/U Status Risk Notes Problem 347804946 Encounter for screening for malignant neoplasm of colon (Z12.11) Active confirmed Problem Preprocedural examination (723480033053782) Preprocedural examination (Z01.818) Active confirmed Problem 112020165 Encounter for long-term (current) use of NSAIDs (Z79.1) Active confirmed Plan Of Treatment Pending Test Test Name Order Date GI BIOPSY 09/21/2015 Future Test Test Name Order Date COLONOSCOPY 09/13/2015 Insurance Providers Payer Name Payer Address Payer Phone Subscriber Number Group Number Insured Name Patient Relationship to Insured Coverage Start Date Coverage End Date [facility] [address] [place] [address] [phone] [id number] RUIZ DE LA GARZA Self - [...]
--- OUTSIDE RECORDS SUMMARY | 2025-06-24 12:47 | XMS_ITS | Patient Health Record ---
Author Organization [facility] Lilian veronica [facility]aliel Address [address] [place] [address] Care Team Providers Care Merchandising Assistant Name Role Phone Remberto Dickson MD Primary Care Provider Maribeth Brown Unavailable [phone] Allergies Allergen (clinical drug ingredient) Drug/Non Drug [...] National Govt S[employer] Inc [address] [place] [address] [id number] Andrew Abreu Self - patient is the insured [facility] [facility] [address] [place] [address] [id number] Andrew Abreu Self - patient is the insured Medical (General) History Medical History History ICD Code Arthritis Back,Hip,and Knee pain CAD (Cholesterol) Heart disease chronic sinusitis Raynauds syndrome Mumps Vascular grafts Transfusions Surgical History Surgery Date(Month/Year) quad bypass 05/2017 left knee arthroscopic 1999 vasectomy 1994
== END 2025-06-24 12:58 | disposition home or self-care (01) ==
LOC: HO.HCS 12:18
PROVIDERS: PCP Family Medicine; Visit Provider Internal Medicine Cardiovascular Disease
DX: I25.10 Atherosclerotic heart disease of native coronary artery without angina pectoris (principal); I35.0 Nonrheumatic aortic (valve) stenosis; I71.20 Thoracic aortic aneurysm, without rupture, unspecified
CPT/HCPCS: 93010; 99214; G2211

== ENCOUNTER → 2025-06-24 12:17 | Outpatient (BNVA) | payer MEDICARE, SELFPAY | PROVIDERS: PCP Family Medicine; Visit Provider Internal Medicine Cardiovascular Disease | DX: I25.10 Atherosclerotic heart disease of native coronary artery without angina pectoris (principal); I35.0 Nonrheumatic aortic (valve) stenosis; I71.20 Thoracic aortic aneurysm, without rupture, unspecified; I25.2 Old myocardial infarction; Z95.1 Presence of aortocoronary bypass graft; Z79.82 Long term (current) use of aspirin | CPT/HCPCS: 93005; 99212 ==

== ENCOUNTER 2025-07-23 11:25 | Outpatient (REF) | payer MEDICARE, SELFPAY ==
--- OUTSIDE RECORDS SUMMARY | 2025-07-23 11:29 | XMS_ITS | Clinical Summary ---
Author Organization [address] [facility] Address [address] [place] [address] Phone Care Team Providers Care Stock Holder Name Role Phone Physician, Pcp Unknown Primary Care Provider Cristin vailable Social History Tobacco Use Types Packs/Day Years Used Date Smoking Tobacco: Never Assessed Sex and Gender Information Value Date Recorded Sex Assigned at Not on file Legal Sex Male 12:41 PM EST Gender Identity Not on file Sexual Orientation Not on file Plan of Treatment Health Maintenance Due Date Last Done Comments DTaP,Tdap,and Td Vaccines (1 - Tdap) 1974 Pneumococcal Vaccine: 50+ Ye ars (1 of 1 - PCV) 2005 Zoster Vaccines (1 of 2) 2005 COVID-19 Vaccine ( - 2023-2 5 season) 2024 Depression Screening 12/02/2024 Abdominal Aortic Aneurysm (A [...] age to complete this topic Insurance MEDICARE [facility] Care Teams Stock Holder Relationship Specialty Start Date End Date Physician, Pcp Unknown PCP - General 03/10/25
--- OUTSIDE RECORDS SUMMARY | 2025-07-23 11:29 | XMS_ITS | Patient Health Record ---
Author Organization [facility] Address [address] [place] [address] Care Team Providers Care Stock Hanger Name Role Phone Remberto Dickson Primary Care Provider Iron Yusuf Unavailable [phone] Allergies Allergen (clinical drug ingredient) Drug/Non Drug Allergy documented on EMR Reaction Allergy Type Onset Date Status Penicillin Unknown Drug Allergy Active Reason For Referral No Information Medications Medication SIG (Take, Route, Frequency, Duration) Notes Start Date End Date Status Magnesium Active Probiotic Active Ezetimibe 10 MG TAKE 1 TABLET BY MANNY TH EVERY DAY Oral for 90 Days Active Viagra Active Rosuvastatin Calcium 10 MG TAKE 1 TABLET BY MOUTH EVERY DAY Oral for 90 Days Active CoQ-10 Active Aspirin Active Turmeric Active Problems Problem Type SNOMED Code ICD Code Onset Dates Problem Status W/U Status Risk Notes Problem Colon cancer screening (273588953) Colon cancer screening (Z12.11) Active confirmed Problem 809867624 Encounter for screening for malignant neoplasm of colon (Z12.11) Active confirmed Problem Constipation (55063637) Constipation (K59.00) Active confirmed Problem Change in bowel habit (40117918) Change in bowel habits (R19.4) Active confirmed Problem Preprocedural examination (794179300170082) Preprocedural examination (Z01.818) Active confirmed Problem 986932926 Encounter for long-term (current) use of NSAIDs (Z79.1) Active confirmed Problem History of adenomatous polyp of colon (483327695) History of adenomatous polyp of colon (Z86.0101) Active confirmed Vital Signs Blood pressure diastolic 77 mm Hg 07/13/2025 Height 69.5 in 07/13/2025 Blood pressure systolic 111 mm Hg 07/13/2025 Weight 177 lbs 07/13/2025 BMI 25.76 kg/m2 07/13/2025 Procedures Procedure Date Ordered Date Performed Result Body Sit e COLONOSCOPY 07/13/2025 N/A Encounters Encounter Location Date Provider Diagnosis [facility] [address] [place] [address] 07/13/2025 Iron Serrano History of adenomato us polyp of colon Z86.0101 ; Constipation K59.00 ; Colon cancer screening Z12.11 and Change in bowel habits R19.4 Assessments Encounter Date Diagnosis (ICD Code) Assessment Notes Treatment Notes Treatment Clinical Notes Section Notes 07/13/2025 Constipation (ICD-10 - K59.00) Start 2 Metamucil fiber pills with a big glass of water once or twice a day Overall, Ruiz appears quite well. In regard to his change in bowel habits we did review that this does not seem overly worrisome but nonetheless will be addressed by checking some thyroid studies, a CBC, and scheduling his colonoscopy for him. The colonoscopy will be done primarily for screening and his previous history of the tiny tubular adenoma removed about 10 years ago. We did review the rationale for the colonoscopy in regard to colorectal cancer prevention and/or early detection. Full consent has been obtained for this, including risk of bleeding and perforation. The procedure will be done with monitored anesthesia care. He was advised not to use any aspirin on the morning of the procedure. Also, in regard to the change in his bowel habits, I did recommend he begin some Metamucil as instructed below. I did advise him to contact me before the colonoscopy if he begins have any worsening symptoms or problems. Ruiz was comfortable with this plan. Thank you again for allowing me to participate in Ruiz's care. I shall continue to keep you advised of his progress. 07/13/2025 History of adenomatous polyp of colon (ICD-10 - Z86.0101) Overall, Ruiz appears quite well. In regard to his change in bowel habits we did review that this does not seem overly worrisome but nonetheless will be addressed by checking some thyroid studies, a CBC, and scheduling his colonoscopy for him. The colonoscopy will be done primarily for screening and his previous history of the tiny tubular adenoma removed about 10 years ago. We did review the rationale for the colonoscopy in regard to colorectal cancer prevention and/or early detection. Full consent has been obtained for this, including risk of bleeding and perforation. The procedure will be done with monitored anesthesia care. He was advised not to use any aspirin on the morning of the procedure. Also, in regard to the change in his bowel habits, I did recommend he begin some Metamucil as instructed below. I did advise him to contact me before the colonoscopy if he begins have any worsening symptoms or problems. Ruiz was comfortable with this plan. Thank you again for allowing me to participate in Ruiz's care. I shall continue to keep you advised of his progress. 07/13/2025 Colon cancer screening (ICD-10 - Z12.11) Overall, Ruiz appears quite well. In regard to his change in bowel habits we did review that this does not seem overly worrisome but nonetheless will be addressed by checking some thyroid studies, a CBC, and scheduling his colonoscopy for him. The colonoscopy will be done primarily for screening and his previous history of the tiny tubular adenoma removed about 10 years ago. We did review the rationale for the colonoscopy in regard to colorectal cancer prevention and/or early detection. Full consent has been obtained for this, including risk of bleeding and perforation. The procedure will be done with monitored anesthesia care. He was advised not to use any aspirin on the morning of the procedure. Also, in regard to the change in his bowel habits, I did recommend he begin some Metamucil as instructed below. I did advise him to contact me before the colonoscopy if he begins have any worsening symptoms or problems. Ruiz was comfortable with this plan. Thank you again for allowing me to participate in Ruiz's care. I shall continue to keep you advised of his progress. 07/13/2025 Change in bowel habits (ICD-10 - R19.4) Overall, Ruiz appears quite well. In regard to his change in bowel habits we did review that this does not seem overly worrisome but nonetheless will be addressed by checking some thyroid studies, a CBC, and scheduling his colonoscopy for him. The colonoscopy will be done primarily for screening and his previous history of the tiny tubular adenoma removed about 10 years ago. We did review the rationale for the colonoscopy in regard to colorectal cancer prevention and/or early detection. Full consent has been obtained for this, including risk of bleeding and perforation. The procedure will be done with monitored anesthesia care. He was advised not to use any aspirin on the morning of the procedure. Also, in regard to the change in his bowel habits, I did recommend he begin some Metamucil as instructed below. I did advise him to contact me before the colonoscopy if he begins have any worsening symptoms or problems. Ruiz was comfortable with this plan. Thank you again for allowing me to participate in Ruiz's care. I shall continue to keep you advised of his progress. Plan Of Treatment Pending Test Test Name Order Date COLONOSCOPY 07/13/2025 TSH (THYROID STIMULATING HORMONE) 2024 CBC w DIFF 07/13/2025 T4 Thyroxine 07/13/2025 Future Test Test Name Order Date COLONOSCOPY 09/13/2015 Next Appt Details Provider Name:Iron Serrano , 10/06/2025 10:30:00 AM, [address] [place] [address] , [place], [place], [id number], Insurance Providers Payer Name Payer Address Payer Phone Subscriber Number Group Number Insured Name Patient Relationship to Insured Coverage Start Date Coverage End Date MEDICARE OF [place] [address] [place] [address] [phone] [id number] RUIZ DE LA GARZA Self - patient is the insured [employer] CLAIMS [address] [place] [address] [id number] RUIZ DE LA GARZA Self - patient is the insured 8 Medical (General) History Medical History History ICD Code Screening colonoscopy 03/06/2006- negati ve except for internal hemorrhoids Arthritis in Knees - - he is being evalu ated for possible knee replacements Denies DM,CVA,Lung disease,renal disease Hypothyroidism Mild asthma- - he does not use any medic ation for that Colonoscopy 2014 with a small tubular ad enoma removed MD 2016-Dr. Hernandez---CABG as below Surgical History Surgery Date(Month/Year) CABG x 4 2017 Detached retina on the right/right catar act 2023 Vasectomy Left knee replacement 2020
--- OUTSIDE RECORDS SUMMARY | 2025-07-23 11:29 | XMS_ITS | Patient Health Record ---
Author Organization [facility] Lilian martin [facility] Address [address] [place] [address] Care Team Providers Care Back Hoe Machine Operator Name Role Phone Remberto Dickson MD Primary Care Provider Maribeth Brown Unavailable [phone] Allergies Allergen (clinical drug ingredient) Drug/Non Drug [...] National Govt Svcs Inc [address] [place] [address] [id number] Andrew Abreu Self - patient is the insured [email or web address] [address] [place] [address] [id number] Andrew Abreu Self - patient is the insured Medical (General) History Medical History History ICD Code Arthritis Back,Hip,and Knee pain CAD (Cholesterol) Heart disease chronic sinusitis Raynauds syndrome Mumps Vascular grafts Transfusions Surgical History Surgery Date(Month/Year) quad bypass 05/2017 left knee arthroscopic 1999 vasectomy 1994
--- OUTSIDE RECORDS SUMMARY | 2025-07-23 11:29 | XMS_ITS | Clinical Summary ---
Author Organization [facility] Address [address] [place] [address] Phone Care Team Providers Care Classified Ad Taker Name Role Phone Pcp, Unknown Primary Care [...] file Insurance MEDICARE PART A & B [employer] CROSS MEDEX SUPPLEMENT MEDICARE PART A & B [employer] MEDEX SUPPLEMENT MEDICARE PART A & B [employer] MEDEX SUPPLEMENT MEDICARE PART A & B [facility] MEDEX SUPPLEMENT MEDICARE PART A & B [employer] MEDEX SUPPLEMENT MEDICARE PART A & B [employer] MEDEX SUPPLEMENT MEDICARE PART A & B [employer] MEDEX SUPPLEMENT MEDICARE PART A & B [employer] MEDEX SUPPLEMENT MEDICARE PART A & B [employer]OSS MEDEX SUPPLEMENT Care Teams Classified Ad Taker Relationship Specialty Start Date End Date Pcp, Unknown PCP - General 05/02/20 Additional Source Comments The information contained in this document represents components of the legal health record. It is not the complete legal health record.[facility]
[2025-07-23 11:36] LABS: MANUAL DIFF FLAG NO
[2025-07-23 12:22] LABS: Hematocrit 37.8 % (42.0-52.0); Hemoglobin 13.0 g/dl (14.0-18.0); Imm Gran Abs Auto 0.02 X10*3/uL (0.00-0.03); Imm Gran Pct Auto 0.3 % (0.0-0.4); Lymphocytes Absolute Auto 2.6 X10*3/uL (1.2-4.9); Mean Corpuscular HGB Conc 34.4 g/dl (31.0-36.0); Mean Corpuscular Hemoglobin 31.3 pg (27.0-33.0); Mean Corpuscular Volume 90.9 fL (80.0-98.0); NRBC Abs Auto 0.000 X10*3/uL (0.0-0.012); NRBC Pct Auto 0.0 /100WBC (0.0-0.2); Platelet Count 161 X10*3/uL (160-400); Red Blood Count 4.16 X10*6/uL (4.60-5.80); White Blood Count 7.1 X10*3/uL (4.8-10.8)
[2025-07-23 13:42] LABS: Thyroid Stimulating Hormone 1.54 uIU/mL (0.32-4.0)
== END 2025-07-23 11:26 | disposition home or self-care (01) ==
LOC: HO.LAB 11:25
PROVIDERS: PCP Family Medicine; Visit Provider Internal Medicine
DX: K59.00 Constipation, unspecified (principal)
CPT/HCPCS: 36415; 84436; 84443; 85025

== ENCOUNTER 2025-09-24 12:04 | Outpatient (REF) | payer MEDICARE, SELFPAY ==
[2025-09-24 12:16] LABS: MANUAL DIFF FLAG NO
[2025-09-24 13:46] LABS: Hematocrit 39.5 % (42.0-52.0); Hemoglobin 13.2 g/dl (14.0-18.0); Imm Gran Abs Auto 0.02 X10*3/uL (0.00-0.03); Imm Gran Pct Auto 0.3 % (0.0-0.4); Lymphocytes Absolute Auto 1.7 X10*3/uL (1.2-4.9); Mean Corpuscular HGB Conc 33.4 g/dl (31.0-36.0); Mean Corpuscular Hemoglobin 30.6 pg (27.0-33.0); Mean Corpuscular Volume 91.4 fL (80.0-98.0); NRBC Abs Auto 0.000 X10*3/uL (0.0-0.012); NRBC Pct Auto 0.0 /100WBC (0.0-0.2); Platelet Count 142 X10*3/uL (160-400); Red Blood Count 4.32 X10*6/uL (4.60-5.80); White Blood Count 6.5 X10*3/uL (4.8-10.8)
--- OUTSIDE RECORDS SUMMARY | 2025-09-24 14:18 | XMS_ITS | Patient Health Record ---
Author Organization [facility] Lilian veronica [place] Address [address] [place] [address] Care Team Providers Care Meat Hostess Name Role Phone Remberto Dickson MD Primary Care Provider Maribeth Brown Unavailable [phone] Allergies Allergen (clinical drug ingredient) Drug/Non Drug [...] National Govt Svcs Inc [address] [place] [address] [id number] Andrew Abreu Self - patient is the insured [employer] [address] [place] [address] [id number] Andrew Abreu Self - patient is the insured Medical (General) History Medical History History ICD Code Arthritis Back,Hip,and Knee pain CAD (Cholesterol) Heart disease chronic sinusitis Raynauds syndrome Mumps Vascular grafts Transfusions Surgical History Surgery Date(Month/Year) quad bypass 05/2017 left knee arthroscopic 1999 vasectomy 1994
--- OUTSIDE RECORDS SUMMARY | 2025-09-24 14:18 | XMS_ITS | Clinical Summary ---
Author Organization [facility] Address [address] [place] [address] Phone Care Team Providers Care Court Orderly Name Role Phone Pcp, Unknown Primary Care [...] file Insurance MEDICARE PART A & B [facility] MEDEX SUPPLEMENT MEDICARE PART A & B MEDEX SUPPLEMENT MEDICARE PART A & B [employer] MEDEX SUPPLEMENT MEDICARE PART A & B [employer] MEDEX SUPPLEMENT MEDICARE PART A & B [employer] MEDEX SUPPLEMENT MEDICARE PART A & B [employer] MEDEX SUPPLEMENT MEDICARE PART A & B [employer] MEDEX SUPPLEMENT MEDICARE PART A & B [employer] MEDEX SUPPLEMENT MEDICARE PART A & B [employer]UE [employer] MEDEX SUPPLEMENT Care Teams Court Orderly Relationship Specialty Start Date End Date Pcp, Unknown PCP - General 05/02/20 Additional Source Comments The information contained in this document represents components of the legal health record. It is not the complete legal health record.[facility]
--- OUTSIDE RECORDS SUMMARY | 2025-09-24 14:18 | XMS_ITS | Encounter Summary ---
Author Organization [facility] Address [address] [place] [address] Care Team Providers Care Student Education Specialist Name Role Phone Physician, Pcp Unknown Primary Care Provider Cristin vailable Encounter Details Date Type Department Care Team (Late st Contact Info) Description 03/10/2025 Lab Requisition [facility] - Main Lab [address] [facility] [place] [address] Arianne Campuzano III, MD [address] [place] [address] [place] [phone] Squamous cell carcinoma of skin of right [...] for residual neoplasm 03/11/2025 10:13 AM EDT [facility] ([facility]) [facility] Clinical Information Right upper arm squamous cell carcinoma suture - short superior , long lateral 03/11/2025 10:13 AM EDT [facility]) [facility] Gross Description A. Arm, Right, [...] specimen is sectioned in a cruciate manner. Import/Export Freight Forwarder sections, to include the entirety of the scar, are submitted as follows: 1, cruciate medial and lateral tips (lateral epidermis inked green), two pieces 2-4, sequential transverse cross-sections from lateral to medial, two pieces each BAO 03/11/2025 10:13 AM EDT [facility] Disclaimer Unless otherwise specified, all tissue is 10% NB formalin fixed and paraffin embedded. 03/11/2025 10:13 AM EDT [facility] Tissue Structure of right upper limb / Unknown 03/09/2025 03/10/2025 8:00 AM EDT us Arainne Campuzano III, MD LAB PATHOLOGY ORDERABLES Fi nal Result [facility] [address] [place] [address], documented in this encounter Visit Diagnoses Diagnosis Squamous cell carcinoma of skin of right upper limb, including shoulder documented in this encounter Care Teams Student Education Specialist Relationship Specialty Start Date End Date Physician, Pcp Unknown PCP - General 03/10/25 documented as of this encounter
--- OUTSIDE RECORDS SUMMARY | 2025-09-24 14:18 | XMS_ITS | Clinical Summary ---
Author Organization [facility] Address [address] [place] [address] Phone Care Team Providers Care Chemical Maker Name Role Phone Physician, Pcp Unknown Primary Care Provider Cristin vailable Social History Tobacco Use Types Packs/Day Years Used Date Smoking Tobacco: Never Assessed Sex and Gender Information Value Date Recorded Sex Assigned at Not on file Legal Sex Male 12:41 PM EST Gender Identity Not on file Sexual Orientation Not on file Plan of Treatment Health Maintenance Due Date Last Done Comments Colorectal Cancer Screening: Colonoscopy 1955 DTaP,Tdap,and Td Vaccines (1 - Tdap) 1974 Pneumococcal Vaccine: 50+ Ye ars (1 of 1 - PCV) 2005 Zoster Vaccines (1 of 2) 2005 Depression Screening 12/02/2024 Abdominal Aortic Aneurysm (A AA) Screen 03/10/2025 Cholesterol Screening (Lipid Panel) 03/10/2025 Falls Risk Assessment 03/10/2025 Hepatitis C [...] age to complete this topic Insurance MEDICARE [facility] Care Teams Chemical Maker Relationship Specialty Start Date End Date Physician, Pcp Unknown PCP - General 03/10/25
--- OUTSIDE RECORDS SUMMARY | 2025-09-24 14:18 | XMS_ITS | Patient Health Record ---
Author Organization [facility] Address [address] [place] [address] Care Team Providers Care Ham Stripper Name Role Phone Remberto Dickson Primary Care Provider Iron Yusuf Unavailable [phone] Allergies Allergen (clinical drug ingredient) Drug/Non Drug Allergy documented on EMR Reaction Allergy Type Onset Date Status Penicillin Unknown Drug Allergy Active Results Component Value Reference Range Notes Complete Blood Count Auto Di ff (Not yet reviewed by provider) Interpretation: Performing Lab:[facility], [address] [place] [phone] Notes/Report: White Blood Count 7.1 4.8-10.8 X10*3/uL [...] Thyroxine Reviewed date:07/25/2025 08:09:56 PM Interpretation: Performing Lab:[address] [address] Notes/Report: T4 Thyroxine 5.1 4.5-12.0 ug/dL Thyroid Stimulating Hormone Reviewed date:07/25/2025 08:09:47 PM Interpretation: Performing Lab:[address] [address] Notes/Report: Thyroid Stimulating Hormone 1.54 0.32-4.0 uIU/ mL TSH 3rd Generation ([facility]) Reason For Referral No Information Medications Medication SIG (Take, Route, Frequency, Duration) Notes Start Date End Date Status Magnesium Active Probiotic Active Ezetimibe 10 MG TAKE 1 TABLET BY MANNY TH EVERY DAY Oral; Duration: 90 Days Active Viagra Active Rosuvastatin Calcium 10 MG TAKE 1 TABLET BY MOUTH EVERY DAY Oral; Duration: 90 Days Active CoQ-10 Active Aspirin Active Turmeric Active Problems Problem Type SNOMED Code ICD Code Onset Dates Problem Status W/U Status Risk Notes Problem Colon cancer screening (890757365) Colon cancer screening (Z12.11) Active confirmed Problem Screening for malignant neoplasm of colon (519393500) Encounter for screening for malignant neoplasm of colon (Z12.11) Active confirmed Problem Constipation (29802925) Constipation (K59.00) Active confirmed Problem Change in bowel habit (63553702) Change in bowel habits (R19.4) Active confirmed Problem Preprocedural examination (912634266052810) Preprocedural examination (Z01.818) Active confirmed 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 use of non-steroidal anti-inflammatory drug (595003776990979) Encounter for long-term (current) use of NSAIDs (Z79.1) Active confirmed Problem Anemia (950097880) Anemia (D64.9) Active confirmed Problem History of adenomatous polyp of colon (848689853) History of adenomatous polyp of colon (Z86.0101) Active confirmed Vital Signs Blood pressure diastolic 77 mm Hg 07/13/2025 Height 69.5 in 07/13/2025 Blood pressure systolic 111 mm Hg 07/13/2025 Weight 177 lbs 07/13/2025 BMI 25.76 kg/m2 07/13/2025 Procedures Procedure Date Ordered Date Performed Result Body Sit e COLONOSCOPY 07/13/2025 N/A Encounters Encounter Location Date Provider Diagnosis [facility] [address] [place] [address] 07/13/2025 Iron Serrnao History of adenomato us polyp of colon Z86.0101 ; Constipation K59.00 ; Colon cancer screening Z12.11 and Change in bowel habits R19.4 [facility] [address] [place] [address] 09/07/2025 Iron Serrano Anemia D64.9 Assessments Encounter Date Diagnosis (ICD Code) Assessment [...] to keep you advised of his progress. 09/07/2025 Anemia (ICD-10 - D64.9) 07/13/2025 Colon cancer screening (ICD-10 - Z12.11) [...] COLONOSCOPY 07/13/2025 TSH (THYROID STIMULATING HORMONE) 2024 IRON + IBC (FE) 09/07/2025 CBC w DIFF 09/07/2025 CBC w DIFF 07/13/2025 Complete Blood Count Auto Diff Ferritin 09/07/2025 Vitamin B12 and Folate 09/07/2025 T4 Thyroxine 07/13/2025 Future Test Test Name Order Date COLONOSCOPY 09/13/2015 Next Appt Details Provider Name:Iron Serrano , 10/06/2025 09:30:00 AM, [address] [place] [address] , [place], [phone], Insurance Providers Payer Name Payer Address Payer Phone Subscriber Number Group Number Insured Name Patient Relationship to Insured Coverage Start Date Coverage End Date MED[place]ARE [place] [address] [place] [address] [id number] DE LA GARZARUIZ Self - patient is the insured MEDEX ATTN CLAIMS [address] [place] [address] [id number] RUIZ DE LA GARZA Self - patient [...] with a small tubular ad enoma removed [place] 2016-Dr. Hernandez---CABG as below Surgical History Surgery Date(Month/Year) CABG x 4 2017 Detached retina on the right/right catar act 2023 Vasectomy Left knee replacement 2020
[2025-09-24 14:47] LABS: Iron 66 mcg/dL (45-160); Percent Iron Saturation 20 % (15-50); Total Iron Binding Capacity 336 mcg/dL (228-428); Unsaturated Iron Binding 270 ug/dL
[2025-09-24 14:54] LABS: Folate 12.9 ng/mL (> or = 4.0); Vitamin B12 1693 pg/mL (200-900)
[2025-09-24 14:57] LABS: Ferritin 62 ng/mL (20-250)
== END 2025-09-24 12:05 | disposition home or self-care (01) ==
LOC: HO.LAB 12:04
PROVIDERS: PCP Family Medicine; Visit Provider Internal Medicine
DX: D64.9 Anemia, unspecified (principal)
CPT/HCPCS: 36415; 82607; 82728; 82746; 83540; 85025

== ENCOUNTER 2025-10-04 11:28 | Outpatient (REF) | payer MEDICARE, SELFPAY ==
--- NOTE | ~2025-10-04 | US_ITS ---
EXAMINATION: US EXTRACRANIAL CAROTID DUPLEX, BILATERAL CLINICAL INFORMATION: I65.21. COMPARISON: July 14, 2024. TECHNIQUE: Real-time ultrasound and Doppler techniques (integrating B-mode 2-D vascular images, Doppler spectral analysis and color-flow Doppler imaging) were utilized to interrogate the extracranial carotid arteries, the vertebral arteries and proximal subclavian arteries bilaterally. The degree of stenosis is determined by criteria similar to NASCET. FINDINGS: Right Side: 1. There is irregular shaped calcified atherosclerotic plaque seen in the bifurcation/proximal ICA region. 2. The common carotid artery PSV proximally is 96 cm/s and distally 107 cm/s. 3. The proximal internal carotid artery velocities are 180 cm/s systolic and 51 cm/s diastolic. 4. The proximal external carotid artery PSV is 90 cm/s. 5. The vertebral artery shows antegrade flow. 6. The subclavian artery waveforms are normal. ICAs/CCA ratio: 1.7. Left Side: 1. There is irregular shaped calcified atherosclerotic plaque seen in the bifurcation/proximal ICA region. 2. The common carotid artery PSV proximally is 119 cm/s and distally 108 cm/s. 3. The proximal internal carotid artery velocities are 127 cm/s systolic and 39 cm/s diastolic. 4. The proximal external carotid artery PSV is 72 cm/s. 5. The vertebral artery shows antegrade flow. 6. The subclavian artery waveforms are normal. ICA/CCA ratio: 1.1. US/US carotid duplex BI IMPRESSION: 1. RIGHT: 50-79% stenosis by ultrasound criteria. 2. LEFT: 70-79% stenosis by ultrasound criteria. 3. There is a change in the category severity of disease when compared to the previous study dated July 14, 2024. Electronically signed by: Benjamín Smith MD 10/04/2025 12:21 PM [facility]
--- OUTSIDE RECORDS SUMMARY | 2025-10-04 14:34 | XMS_ITS | Clinical Summary ---
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 Name Role Phone Pcp, Unknown Primary Care [...] file Insurance MEDICARE PART A & B [facility] MEDEX SUPPLEMENT MEDICARE PART A & B MEDEX SUPPLEMENT MEDICARE PART A & B [place] MEDEX SUPPLEMENT MEDICARE PART A & B [employer] CROSS MEDEX SUPPLEMENT MEDICARE PART A & B [employer] MEDEX SUPPLEMENT MEDICARE PART A & B [employer] MED[employer] SUPPLEMENT MEDICARE PART A & B [employer] MED[employer] SUPPLEMENT MEDICARE PART A & B [employer] MEDEX SUPPLEMENT MEDICARE PART A & B [employer] MEDEX SUPPLEMENT Care Teams Supervisor Phosphorus Processing Relationship Specialty Start Date End Date Pcp, Unknown PCP - General 05/02/20 Additional Source Comments The information contained in this document represents components of the legal health record. It is not the complete legal health record.[facility]
--- OUTSIDE RECORDS SUMMARY | 2025-10-04 14:35 | XMS_ITS | Patient Health Record ---
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 [place] [address] [id number] Andrew Abreu Self - patient is the insured [employer] [address] [place] [address] [id number] Andrew Abreu Self - patient is the insured Medical (General) History Medical History History ICD Code Arthritis Back,Hip,and Knee pain CAD (Cholesterol) Heart disease chronic sinusitis Raynauds syndrome Mumps Vascular grafts Transfusions Surgical History Surgery Date(Month/Year) quad bypass 05/2017 left knee arthroscopic 1999 vasectomy 1994
--- OUTSIDE RECORDS SUMMARY | 2025-10-04 14:35 | XMS_ITS | Patient Health Record ---
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 Name Role Phone Remberto Dickson Primary Care Provider Iron Yusuf Unavailable [phone] Allergies Allergen (clinical drug ingredient) Drug/Non Drug Allergy documented on EMR Reaction Allergy Type Onset Date Status Penicillin Unknown Drug Allergy Active Results Component Value Reference Range Notes Complete Blood Count Auto Di ff (Not yet reviewed by provider) Interpretation: Performing Lab:[facility], [address] [place] [phone] Notes/Report: White Blood Count 7.1 4.8-10.8 X10*3/uL [...] Thyroxine Reviewed date:07/25/2025 08:09:56 PM Interpretation: Performing Lab:[facility], [address] [place] [phone] Notes/Report: T4 Thyroxine 5.1 4.5-12.0 ug/dL Thyroid Stimulating Hormone Reviewed date:07/25/2025 08:09:47 PM Interpretation: Performing Lab:[facility], [address] [place] [phone] Notes/Report: Thyroid Stimulating Hormone 1.54 0.32-4.0 uIU/ mL TSH 3rd Generation ([facility]) Complete Blood Count Auto Di ff (Not yet reviewed by provider) Interpretation: Performing Lab:[facility], [address] [place] [phone] Notes/Report: White Blood Count 6.5 4.8-10.8 X10*3/uL Red Blood Count 4.32 4.60-5.80 X10*6/uL Hemoglobin 13.2 14.0-18.0 g/dl Hematocrit 39.5 42.0-52.0 % Mean Corpuscular Volume 91.4 80.0-98.0 fL Mean Corpuscular Hemoglobin 30.6 27.0-33.0 pg Mean Corpuscular HGB Conc 33.4 31.0-36.0 g/dl Red Cell Distribution Width 11.9 11.0-16.0 % Platelet Count 142 160-400 X10*3/uL Mean Platelet Volume 9.1 9.4-12.4 fL Neutrophils Percent Auto 62.8 45-73 % Imm Gran Pct Auto 0.3 0.0-0.4 % Lymphocytes Percent Auto 26.1 20-40 % Monocytes Percent Auto 6.6 2-11 % Eosinophils Percent Auto 3.4 0-4 % Basophils Percent Auto 0.8 0-2 % NRBC Pct Auto 0.0 0.0-0.2 /100WBC Neutrophils Absolute Auto 4.1 2.0-8.3 x10*3/u L Imm Gran Abs Auto 0.02 0.00-0.03 X10*3/uL Lymphocytes Absolute Auto 1.7 1.2-4.9 X10*3/u L Monocytes Absolute Auto 0.4 0.1-1.2 X10*3/uL Eosinophils Absolute Auto 0.2 0.0-0.4 X10*3/u L Basophils Absolute Auto 0.1 0.0-0.2 X10*3/uL NRBC Abs Auto 0.000 0.0-0.012 X10*3/uL IRON PROFILE Reviewed date:09/24/2025 10:48:16 PM Interpretation: Performing Lab:[facility], [address] [place] [phone] Notes/Report: Iron 66 45-160 mcg/dL Total Iron Binding Capacity 336 228-428 mcg/d L Percent Iron Saturation 20 15-50 % Unsaturated Iron Binding 270 Ferritin Reviewed date:09/24/2025 10:48:04 PM Interpretation: Performing Lab:[facility], [address] [place] [phone] Notes/Report: Ferritin 62 20-250 ng/mL Vitamin B12 Reviewed date:09/24/2025 10:48:44 PM Interpretation: Performing Lab:[facility], [address] [place] [phone] Notes/Report: Vitamin B12 1693 200-900 pg/mL NORMAL 200-900 PG/ML INDETERMINATE 160-199 PG/ML DEFICIENT < 160 PG/ML Folate Reviewed date:09/24/2025 10:48:27 PM Interpretation: Performing Lab:[facility], [address] [place] [phone] Notes/Report: Folate 12.9 > or = 4.0 ng/mL Reference Values: > or = 4.0 ng/mL < 4.0 ng/mL suggests folate deficiency Methotrexate, aminopterin and folinic acid (leucovorin) are chemotherapeutic agents whose molecular structures are similar to folate; therefore, the [employer]el [employer] folate assay cannot be used for patients using these drugs. 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 current use of non-steroidal anti-inflammatory drug (406683290994380) Encounter for long-term (current) use of NSAIDs (Z79.1) Active confirmed Problem Anemia (930863033) Anemia (D64.9) Active confirmed Problem History of adenomatous polyp of colon (402152633) History of adenomatous polyp of colon (Z86.0101) Active confirmed Vital Signs Blood pressure diastolic 77 mm Hg 07/13/2025 Height 69.5 in 07/13/2025 Blood pressure systolic 111 mm Hg 07/13/2025 Weight 177 lbs 07/13/2025 BMI 25.76 kg/m2 07/13/2025 Procedures Procedure Date Ordered Date Performed Result Body Sit e COLONOSCOPY 07/13/2025 N/A Encounters Encounter Location Date Provider Diagnosis [facility] [address] [place] [address] 07/13/2025 Iron Serrano History of adenomato us polyp of colon Z86.0101 ; Constipation K59.00 ; Colon cancer screening Z12.11 and Change in bowel habits R19.4 [facility] [address] [place] [address] 09/07/2025 Iron Serrano Anemia D64.9 Assessments Encounter [...] DIFF 07/13/2025 Complete Blood Count Auto Diff 5 Complete Blood Count Auto Diff 5 Ferritin 09/07/2025 Vitamin B12 and Folate 09/07/2025 T4 Thyroxine 07/13/2025 Future Test Test Name Order Date COLONOSCOPY 09/13/2015 Next Appt Details Provider Name:Iron Serrano , 10/06/2025 09:30:00 AM, [address] [place] [address] , [place], [place], [id number], Insurance Providers Payer Name Payer Address Payer Phone Subscriber Number Group Number Insured Name Patient Relationship to Insured Coverage Start Date Coverage End Date MEDICARE OF [place] [address] [place] [address] [phone] [id number] RUIZ DE LA GARZA Self - patient is the insured MEDEX ATTN CLAIMS [address] [place] [address] [id number] HOLLI RUIZ Self - patient is the insured 8 [...] with a small tubular ad enoma removed [place] 2016-Dr. Hernandez---CABG as below Surgical History Surgery Date(Month/Year) CABG x 4 2017 Detached retina on the right/right catar act 2023 Vasectomy Left knee replacement 2020
== END 2025-10-04 11:29 | disposition home or self-care (01) ==
LOC: HO.US 11:28
PROVIDERS: PCP Family Medicine; Visit Provider Surgery Vascular Surgery
DX: I65.21 Occlusion and stenosis of right carotid artery (principal)
CPT/HCPCS: 93880

== ENCOUNTER → 2025-10-04 11:30 | Outpatient (BNV) | payer MEDICARE, SELFPAY | PROVIDERS: PCP Family Medicine; Visit Provider Radiology Diagnostic Radiology | DX: I65.21 Occlusion and stenosis of right carotid artery (principal) | CPT/HCPCS: 93880 ==

== ENCOUNTER 2025-10-06 08:29 | Day surgery (SDC) | payer MEDICARE, SELFPAY ==
--- OUTSIDE RECORDS SUMMARY | 2025-08-17 10:49 | XMS_ITS | Clinical Summary ---
Author Organization [facility] Address [address] [place] [address] Phone Care Team Providers Care Incendiary Powder Mixer Name Role Phone Pcp, Unknown Primary Care [...] 2005 ZOSTER VACCINES (1 of 2) 2005 INFLUENZA VACCINE (#1) 2025 11/04/2019 COVID-19 VACCINE (2 - 2024-2 6 season) 2025 02/26/2021 Adult Td,Tdap Booster 07/09/2028 07/09/2018 RSV [...] file Insurance MEDICARE PART A & B [facility] MEDEX SUPPLEMENT MEDICARE PART A & B MEDEX SUPPLEMENT MEDICARE PART A & B [employer] MEDEX SUPPLEMENT MEDICARE PART A & B [employer] MEDEX SUPPLEMENT MEDICARE PART A & B [employer] MEDEX SUPPLEMENT MEDICARE PART A & B [employer] MEDEX SUPPLEMENT MEDICARE PART A & B [employer] MEDEX SUPPLEMENT MEDICARE PART A & B [employer] MEDEX SUPPLEMENT MEDICARE PART A & B [employer] MEDEX SUPPLEMENT Care Teams Incendiary Powder Mixer Relationship Specialty Start Date End Date Pcp, Unknown PCP - General 05/02/20 Additional Source Comments The information contained in this document represents components of the legal health record. It is not the complete legal health record.[facility]
--- OUTSIDE RECORDS SUMMARY | 2025-08-17 10:49 | XMS_ITS | Clinical Summary ---
Author Organization [facility] Address [address] [place] [address] Phone Care Team Providers Care Qm Consultant Name Role Phone Physician, Pcp Unknown Primary [...] 2005 Zoster Vaccines (1 of 2) 2005 Depression Screening 12/02/2024 Abdominal Aortic Aneurysm (A AA) Screen 03/10/2025 Cholesterol Screening (Lipid Panel) 03/10/2025 Colorectal Cancer Screening: Colonoscopy 03/10/2025 Falls Risk Assessment 03/10/2025 Hepatitis C Screening 03/10/2025 Medicare Annual Wellness Visit 03/10/2025 Social Influencers of Health Screening 03/10/2025 COVID-19 Vaccine ( - 2023-2 5 season) 2025 Influenza Vaccine (#1) 2025 RSV Immunization Adult [...] age to complete this topic Insurance MEDICARE [facility] Care Teams Qm Consultant Relationship Specialty Start Date End Date Physician, Pcp Unknown PCP - General 03/10/25
--- OUTSIDE RECORDS SUMMARY | 2025-08-17 10:49 | XMS_ITS | Patient Health Record ---
Author Organization [facility] Lilian veronica [facility] Address [address] [place] [address] Care Team Providers Care Correctional Case Manager Name Role Phone Remberto Dickson MD Primary Care Provider Maribeth Brown Unavailable [phone] Allergies Allergen (clinical drug ingredient) Drug/Non Drug [...] National Govt S[employer] [address] [place] [address] [id number] Andrew Abreu Self - patient is the insured [employer] [address] [place] [address] [id number] Andrew Abreu Self - patient is the insured Medical (General) History Medical History History ICD Code Arthritis Back,Hip,and Knee pain CAD (Cholesterol) Heart disease chronic sinusitis Raynauds syndrome Mumps Vascular grafts Transfusions Surgical History Surgery Date(Month/Year) quad bypass 05/2017 left knee arthroscopic 1999 vasectomy 1994
--- OUTSIDE RECORDS SUMMARY | 2025-08-17 10:49 | XMS_ITS | Encounter Summary ---
Author Organization [facility] Address [address] [place] [address] Care Team Providers Care Commander Police Reserves Name Role Phone Physician, Pcp Unknown Primary Care Provider Cristin vailable Encounter Details Date Type Department Care Team (Late st Contact Info) Description 03/10/2025 Lab Requisition [facility] - Main Lab [address] [facility] [place] [address] Arianne Campuzano III, MD [address] [place] [address] [place] [phone] Squamous cell carcinoma of skin of right upper limb, including shoulder Social History Tobacco Use Types Packs/Day Years Used Date Smoking Tobacco: Never Assessed Sex and Gender Information Value Date Recorded Sex Assigned at Not on file Legal Sex Male 12:41 PM EST Gender Identity Not on file Sexual Orientation Not on file documented as of this encounter Plan of Treatment Not on file documented as of this encounter Procedures Procedure Name Priority Date/Time Associated Diagnosis Comments TISSUE EXAM Routine 03/09/2025 Squamous cell carcinoma of skin of right upper limb, including shoulder documented in this encounter Results * Tissue Exam (03/09/2025) Final Diagnosis Skin, right upper arm-excision: -CICATRIX, CONSISTENT WITH BIOPSY SITE SCAR -Negative for residual neoplasm 03/11/2025 10:13 AM EDT [facility] Clinical Information Right upper arm squamous cell carcinoma suture - short superior , long lateral 03/11/2025 10:13 AM EDT [facility] Gross Description A. Arm, Right, upper: Labeled right upper arm suture short superior long lateral . Received in formalin is a 5.2 x 1.7 cm oriented austin-white skin ellipse excised to depth of 0.5 cm. There is a short suture on one edge designating superior and a long suture and one tip designating lateral per the requisition. The epidermis displays a 1.3 x 1.1 cm well-healed austin-white scar located 0.2 cm from the superior margin. The superior margin is inked blue, inferior black, lateral epidermis green. The specimen is sectioned in a cruciate manner. Process Development Manager sections, to include the entirety of the scar, are submitted as follows: 1, cruciate medial and lateral tips (lateral epidermis inked green), two pieces 2-4, sequential transverse cross-sections from lateral to medial, two pieces each BAO 03/11/2025 10:13 AM EDT [facility] Disclaimer Unless otherwise specified, all tissue is 10% NB formalin fixed and paraffin embedded. 03/11/2025 10:13 AM EDT [facility] Tissue Structure of right upper limb / Unknown 03/09/2025 03/10/2025 8:00 AM EDT us Arianne Campuzano III, MD LAB PATHOLOGY ORDERABLES Fi nal Result [facility] [address] [place] [address], documented in this encounter Visit Diagnoses Diagnosis Squamous cell carcinoma of skin of right upper limb, including shoulder documented in this encounter Care Teams Commander Police Reserves Relationship Specialty Start Date End Date Physician, Pcp Unknown PCP - General 03/10/25 documented as of this encounter
--- OUTSIDE RECORDS SUMMARY | 2025-08-17 10:49 | XMS_ITS | Patient Health Record ---
Author Organization [facility] Address [address] [place] [address] Care Team Providers Care Administrative Volunteer Name Role Phone Remberto Dickson Primary Care Provider Iron Yusuf Unavailable [phone] Allergies Allergen (clinical drug ingredient) Drug/Non Drug Allergy documented on EMR Reaction Allergy Type Onset Date Status Penicillin Unknown Drug Allergy Active Results Component Value Reference Range Notes Complete Blood Count Auto Di ff (Not yet reviewed by provider) Interpretation: Performing Lab:[facility], [address] [place] [phone] Notes/Report: White Blood Count 7.1 4.8-10.8 X10*3/uL Red Blood Count 4.16 4.60-5.80 X10*6/uL Hemoglobin 13.0 14.0-18.0 g/dl Hematocrit 37.8 42.0-52.0 % Mean Corpuscular Volume 90.9 80.0-98.0 fL Mean Corpuscular Hemoglobin 31.3 27.0-33.0 pg Mean Corpuscular HGB Conc 34.4 31.0-36.0 g/dl Red Cell Distribution Width 12.3 11.0-16.0 % Platelet Count 161 160-400 X10*3/uL Mean Platelet Volume 8.8 9.4-12.4 fL Neutrophils Percent Auto 51.0 45-73 % Imm Gran Pct Auto 0.3 0.0-0.4 % Lymphocytes Percent Auto 36.1 20-40 % Monocytes Percent Auto 6.8 2-11 % Eosinophils Percent Auto 5.1 0-4 % Basophils Percent Auto 0.7 0-2 % NRBC Pct Auto 0.0 0.0-0.2 /100WBC Neutrophils Absolute Auto 3.6 2.0-8.3 x10*3/u L Imm Gran Abs Auto 0.02 0.00-0.03 X10*3/uL Lymphocytes Absolute Auto 2.6 1.2-4.9 X10*3/u L Monocytes Absolute Auto 0.5 0.1-1.2 X10*3/uL Eosinophils Absolute Auto 0.4 0.0-0.4 X10*3/u L Basophils Absolute Auto 0.1 0.0-0.2 X10*3/uL NRBC Abs Auto 0.000 0.0-0.012 X10*3/uL T4 Thyroxine Reviewed date:07/25/2025 08:09:56 PM Interpretation: Performing Lab:[address] [address] Notes/Report: T4 Thyroxine 5.1 4.5-12.0 ug/dL Thyroid Stimulating Hormone Reviewed date:07/25/2025 08:09:47 PM Interpretation: Performing Lab:[address] [address] Notes/Report: Thyroid Stimulating Hormone 1.54 0.32-4.0 uIU/ mL TSH 3rd Generation ([facility]) Reason For Referral No Information Medications Medication [...] Status Risk Notes Problem Colon cancer screening (681928152) Colon cancer screening (Z12.11) Active confirmed Problem 733059710 Encounter for screening for malignant neoplasm of colon (Z12.11) Active confirmed Problem Constipation (29422471) Constipation (K59.00) Active confirmed Problem Change in bowel habit (71441322) Change in bowel habits (R19.4) Active confirmed Problem Preprocedural examination (465892318569076) Preprocedural examination (Z01.818) Active confirmed Problem 276210257 Encounter for long-term (current) use of NSAIDs (Z79.1) Active confirmed Problem History of adenomatous polyp of colon (849888660) History of adenomatous polyp of colon (Z86.0101) Active confirmed Vital Signs Blood pressure diastolic 77 mm Hg 07/13/2025 Height 69.5 in 07/13/2025 Blood pressure systolic 111 mm Hg 07/13/2025 Weight 177 lbs 07/13/2025 BMI 25.76 kg/m2 07/13/2025 Procedures Procedure Date Ordered Date Performed Result Body Sit e COLONOSCOPY 07/13/2025 N/A Encounters Encounter Location Date Provider Diagnosis [facility] [address] [place] [address] 07/13/2025 Iron Serrano History of adenomato us [...] STIMULATING HORMONE) 2024 CBC w DIFF 07/13/2025 Complete Blood Count Auto Diff T4 Thyroxine 07/13/2025 Future Test Test Name Order Date COLONOSCOPY 09/13/2015 Next Appt Details Provider Name:Iron Serrano , 10/06/2025 10:30:00 AM, [address] [place] [address], [id number], Insurance Providers Payer Name Payer Address Payer Phone Subscriber Number Group Number Insured Name Patient Relationship to Insured Coverage Start Date Coverage End Date MEDICARE OF [place] [address] [place] [address] [id number] RUIZ DE LA GARZA Self - patient is the insured MEDEX ATTN CLAIMS [address] [place] [address] [phone] [id number] RUIZ DE LA GARZA Self - patient [...] with a small tubular ad enoma removed [place] 2016-Dr. Hernandez---CABG as below Surgical History Surgery Date(Month/Year) CABG x 4 2016 Detached retina on the right/right catar act 2023 Vasectomy Left knee replacement 2020
[2025-10-04 11:07] VITALS: BMI 25.8
--- NOTE | 2025-10-04 12:29 | HO.ANESPROP2 ---
Documented by User: Nevin Gamez NP 10/04/25 12:39 HPI - Anesthesia Eval Consult details Narrative: 70yo M for Colonoscopy [place] [facility] [place] s/p CABG x 4, TAA - stable at 06/2025 office visit [place]s [facility] [place] [place] carotid stenosis. Per 10/2024 office visit: right side 50-79% stenosis with a peak systolic of only 139. Left-sided 0-49%. In terms of the right side I do suspect it is more to the 40-50% side stenosis. Written report and images were reviewed. [facility] Active Problems Active Problems: All Active Problems Right cavernous carotid stenosis (Acute) Aortic stenosis (Acute) Preoperative cardiovascular examination (Acute) Hyperlipidemia (Acute) Thoracic aortic aneurysm (Acute) CAD (coronary artery disease) (Acute) Past Medical History Medical History Mild asthma Carotid stenosis Hyperlipidemia Thoracic aortic aneurysm CAD (coronary artery disease) Family History Family History Mother Dementia Father Alzheimer disease Surgical History Surgical History Hx of eye surgery H/O colonoscopy History of total left knee replacement S/P CABG x 4 Social History Social History Alcohol intake: current Alcohol intake frequency: a few times a week Alcohol type: beer and wine Patient Tobacco Use Status: Former Tobacco user Use of substances other than those prescribed or required for medical reasons: No Are you DNR?: No Advance Directives: No Advance Directives Information Provided: Yes Meds Allergies Allergy/AdvReac Type Severity Reaction Status Date / Time Penicillins (PENICILLINS) Allergy Intermediate RASH, Verified 10/06/25 08:43 ITCHY atorvastatin AdvReac Intermediate Terrible Verified 10/06/25 08:43 muscle and joint aches Home Medications ?Medication ?Instructions ?Recorded ?Confirmed ?Last Taken ?Type acetaminophen 500 mg tablet 500 mg PO Q6H PRN Pain 06/07/21 10/06/25 Unknown History (Tylenol Extra Strength) aspirin 81 mg tablet,delayed 81 mg PO DAILY 06/07/21 10/06/25 10/05/25 History release (Adult Aspirin Regimen) cholecalciferol (vitamin D3) 50 50 mcg PO DAILY 06/07/21 10/06/25 Unknown History mcg (2,000 unit) capsule ezetimibe 10 mg tablet (Zetia) 10 mg PO DAILY 06/07/21 10/06/25 Unknown History sildenafil 50 mg tablet (Viagra) 50 mg PO DAILY PRN Erectile 06/07/21 10/06/25 Unknown History Dysfunction coQ10 (ubiquinol) 100 mg capsule 200 mg PO .QOD 06/07/22 10/06/25 09/29/25 History rosuvastatin 10 mg tablet 10 mg PO BEDTIME 06/07/22 10/06/25 Unknown History Exam Height,Weight and Vital Signs: Height 5 ft 9.5 in Weight 80.286 kg Pertinent Lab Results Pertinent Lab Results: Laboratory Tests 09/24/25 12:14 WBC 6.5 Hgb 13.2 L Hct 39.5 L Plt Count 142 L Narrative Narrative: EKG 06/2025 EKG Details: EKG shows normal sinus rhythm with inferior infarct pattern ECHO 06/2025 Conclusions: - The left ventricular systolic function is normal. The calculated ejection fraction is 66% by biplane method. - There is moderate calcification of the aortic valve. There is mild aortic valve stenosis. - There is moderate mitral annular calcification. - There is mild dilatation of the ascending aorta measuring 4.00 cm. Assessment and Plan Assessment Anesthesia Assessment: Chart Reviewed Documented by User: Liyah Orona MD 10/06/25 09:39 [facility] Past Medical History Medical History Mild asthma Carotid stenosis Hyperlipidemia Thoracic aortic aneurysm CAD (coronary artery disease) Family History Family History Mother Dementia Father Alzheimer disease Surgical History Surgical History Hx of eye surgery H/O colonoscopy History of total left knee replacement S/P CABG x 4 History of Problems with Anesthesia: No Social History Social History Alcohol intake: current Alcohol intake frequency: a few times a week Alcohol type: beer and wine Patient Tobacco Use Status: Former Tobacco user Use of substances other than those prescribed or required for medical reasons: No Are you DNR?: No Advance Directives: No Advance Directives Information Provided: Yes Meds Allergies Allergy/AdvReac Type Severity Reaction Status Date / Time Penicillins (PENICILLINS) Allergy Intermediate RASH, Verified 10/06/25 08:43 ITCHY atorvastatin AdvReac Intermediate Terrible Verified 10/06/25 08:43 muscle and joint aches Home Medications ?Medication ?Instructions ?Recorded ?Confirmed ?Last Taken ?Type acetaminophen 500 mg tablet 500 mg PO Q6H PRN Pain 06/07/21 10/06/25 Unknown History (Tylenol Extra Strength) aspirin 81 mg tablet,delayed 81 mg PO DAILY 06/07/21 10/06/25 10/05/25 History release (Adult Aspirin Regimen) cholecalciferol (vitamin D3) 50 50 mcg PO DAILY 06/07/21 10/06/25 Unknown History mcg (2,000 unit) capsule ezetimibe 10 mg tablet (Zetia) 10 mg PO DAILY 06/07/21 10/06/25 Unknown History sildenafil 50 mg tablet (Viagra) 50 mg PO DAILY PRN Erectile 06/07/21 10/06/25 Unknown History Dysfunction coQ10 (ubiquinol) 100 mg capsule 200 mg PO .QOD 06/07/22 10/06/25 09/29/25 History rosuvastatin 10 mg tablet 10 mg PO BEDTIME 06/07/22 10/06/25 Unknown History Assessment and Plan Assessment Anesthesia Assessment: Anesthesia Plan Discussed Final Anesthetic Review History of Problems with Anesthesia: No NPO: Yes ASA Class: III Final Preanesthetic Review: Meds/Allgs Chart Reviewed, Consent Obtained/Reviewed and Anes Risks/Benef Reviewed Patient Risk: Intermediate Procedure Risk: Low Anesthetic Plan Anesthetic Plan: MAC: Disposition: Standard PACU
[2025-10-06 08:44] VITALS: BMI 25.0
[2025-10-06 08:58] VITALS: BP 132/77; PULSE 75; RESP 15; TEMP 36.8; O2SAT 98
[2025-10-06] MEDS: Lactated Ringers 1,000 ML 100 ML IVCONT (09:15)
[2025-10-06 11:09] VITALS: BP 112/59; PULSE 68; RESP 15; TEMP 36.9; O2SAT 100
--- NOTE | 2025-10-06 11:16 | P.BOP_ITS ---
Brief Operative Note Date of Service: 10/06/25 Pre-op diagnosis: Screening Post-op diagnosis: other (Colon polyp) Procedure: Colonoscopy to the cecum with cold snare polypectomy and placement of 1 Resolution clip Surgeon: Iron Serrano MD Anesthesia: MAC Was an Sales Representative Trainee used for this Procedure?: No Estimated blood loss (mL): 2.0 Pathology: other (A. Transverse colon polyp) Condition: stable Disposition: PACU
[2025-10-06 11:25] VITALS: BP 124/56; PULSE 74; RESP 18; TEMP 36.8; O2SAT 99
--- NOTE | 2025-10-06 22:27 | OP_ITS ---
DATE OF SERVICE: 10/06/2025 SURGEON: Iron Serrano MD INDICATIONS: The patient presents for evaluation of colorectal cancer screening. Full consent has been obtained from him for this, including risks of bleeding and perforation. PREOPERATIVE DIAGNOSIS: Colorectal cancer screening. POSTOPERATIVE DIAGNOSIS: PROCEDURE PERFORMED: Colonoscopy to the cecum with cold snare polypectomy x1 with placement of a single resolution clip. ESTIMATED BLOOD LOSS: COMPLICATIONS: ANESTHESIA: Medication used, monitored anesthesia care. ASSISTANTS: SPECIMENS: POSTOPERATIVE DIAGNOSES: Colorectal cancer screening, colon polyp, sigmoid diverticulosis, and internal hemorrhoids. DESCRIPTION OF PROCEDURE: The patient was placed in the left lateral decubitus position. The digital rectal exam revealed no abnormalities. The Olympus video pediatric colonoscope was entered into the rectum and advanced easily to the cecum. Once in the cecum, I did identify normal-appearing cecal pouch with appendiceal orifice, and a normal-appearing ileocecal valve after copious irrigation and suctioning. I did obtain a good visualization of the cecum and this appeared normal. The ileocecal valve appeared normal. The appendiceal orifice appeared normal. The scope was then slowly withdrawn assessing all mucosal surfaces carefully. Preparation throughout the colon was initially somewhat limited, but after spending a lengthy amount of time irrigating and suctioning preparation ultimately became very good. I did not visualize any sign of colitis nor angiodysplasia. The only polyp I visualized was a flat, but raised approximately 8 mm polyp in the transverse colon that was removed by cold snare polypectomy and then recovered by suction. The polypectomy site appeared clean, without any sign of residual polyp nor significant bleeding. A single resolution clip was applied to the polypectomy site with good deployment and good hemostasis. I did not visualize any other polyps. There was a mild amount of sigmoid diverticulosis. In the rectum, scope was retroflexed visualizing internal hemorrhoids, but no other pathology. The rectal mucosa appeared normal. Scope was straightened and withdrawn the patient. He tolerated the procedure well and was returned to recovery area in stable condition. IMPRESSION: 1. Colon polyp. 2. Diverticulosis. 3. Internal hemorrhoids. PLAN: The results of the pathology will be checked. I would recommend a repeat colonoscopy in 5 years mainly because of the somewhat limited prep initially that required a lot of irrigation and suctioning. He was advised to continue his daily Metamucil, MiraLAX to help improve his constipation. He will otherwise see me on a p.r.n. basis. He was advised to resume his aspirin within 24 to 48 hours. He was advised not to use any NSAIDs for least a week. MD DAVID Perrin/ANTONI / [phone]
== END 2025-10-06 11:48 | disposition home or self-care (01) ==
PROVIDERS: PCP Family Medicine; Visit Provider Internal Medicine
PROC: 0DJD8ZZ Inspection of Lower Intestinal Tract, Via Natural or Artificial Opening Endoscopic (ICD-10-PCS; CPT 45378; principal; 2025-10-06 09:30)
DX: Z12.11 Encounter for screening for malignant neoplasm of colon (principal); Z86.0101 Personal history of adenomatous and serrated colon polyps; D12.3 Benign neoplasm of transverse colon; K57.30 Diverticulosis of large intestine without perforation or abscess without bleeding; K64.8 Other hemorrhoids; I25.10 Atherosclerotic heart disease of native coronary artery without angina pectoris; Z95.1 Presence of aortocoronary bypass graft; E03.9 Hypothyroidism, unspecified; J45.909 Unspecified asthma, uncomplicated; Z79.82 Long term (current) use of aspirin; Z79.899 Other long term (current) drug therapy; Z98.52 Vasectomy status; Z96.652 Presence of left artificial knee joint; Z87.891 Personal history of nicotine dependence
CPT/HCPCS: 45385; 88305; J2371; J2704

== ENCOUNTER 2025-10-12 10:51 | Outpatient (AMB) | payer MEDICARE, SELFPAY ==
--- NOTE | 2025-10-12 10:56 | A.OFFVIS_ITS ---
Intake Visit Reasons: 1 yr follow up carotid US 10/04/2025 Intake Note: Patient presents for 1 year follow up carotid. No complaints. Accompanied by: Self / Same As Patient Allergies Penicillins (PENICILLINS) Allergy (Intermediate, Verified 10/12/25 10:57) RASH, ITCHY atorvastatin Adverse Reaction (Intermediate, Verified 10/12/25 10:57) Terrible muscle and joint aches HPI HPI 1 yr follow up carotid US 10/04/2025: Details: The patient is a 70-year-old male presenting for an annual carotid follow-up. He has a history of coronary artery disease and underwent a four-vessel coronary artery bypass grafting (CABG). Approximately a year ago, he was referred to the vascular surgery department after an incidental finding of a left carotid bruit during a cardiology evaluation. In March, the patient began experiencing sciatica, characterized by pain radiating from the back to the legs. This was a new symptom for him, and he also reported concurrent constipation, and is currently and being treated by MiraLax and Metamucil He now presents for routine surveillance with carotid ultrasound. In terms of his carotids he has been asymptomatic. [facility] Medical History Mild asthma Carotid stenosis Hyperlipidemia Thoracic aortic aneurysm CAD (coronary artery disease) Surgical History Hx of eye surgery H/O colonoscopy History of total left knee replacement S/P CABG x 4 Family History Mother Dementia Father Alzheimer disease Social History Alcohol intake: current Alcohol intake frequency: a few times a week Alcohol type: beer and wine Patient Tobacco Use Status: Former Tobacco user Review of Systems Const All systems reviewed & are unremarkable except as noted in HPI and below Reports no additional complaints ENT Reports Normal hearing present Card Denies chest pain, Denies chest pain at rest, Denies chest pain with activity and Denies pedal edema Resp Denies cough GI Denies abdominal pain Musc Denies abnormal gait, Denies muscle cramps and Denies radiating pain into limb Skin/Breast Denies skin ulcer and Denies wounds Neuro Reports Normal hearing present and Denies abnormal gait Psych Reports no additional complaints Physical Exam Const General: cooperative, healthy appearing and comfortable Orientation/consciousness: oriented to person, oriented to place and oriented to time HEENT Head: Yes normal to inspection Neck Neck: Yes normal visual inspection Carotids: no bruits Chest Chest palpation & inspection: normal inspection of the chest Resp Effort & Inspection: normal respiratory effort and able to speak in complete sentences Auscultation: clear to auscultation bilaterally, no crackles, no rales, no rhonchi and no wheezes Cardio Rate: regular rate Rhythm: regular rhythm Heart sounds: S1 normal heart sound present and S2 normal heart sound present Bruits: no carotid bruits Peripheral pulses: Peripheral pulses 2+ throughout GI Inspection: Yes normal to inspection Skin Wounds: no wounds Hair: normal Neuro General: oriented to person, oriented to place and oriented to time Cranial nerves: Yes CN's II-XII intact bilaterally and Yes Normal hearing present Cognition (Neuro): normal cognition Motor exam (neuro): 5/5 motor strength present throughout Extrem Other: venous exam: No significant superficial varicosities or spider telangiectasias, minimal edema General: No clubbing, No cyanosis and No edema Psych Appearance: grossly normal Mental Status: mental status grossly normal Speech and movement: Normal speech and movement present Results Reviewed Results Reviewed: I reviewed ultrasound results dated 05/03/2025 and it demonstrates right side 50- 79 and left 70-79% stenosis. I disagree with these findings and should be bilateral 50-79% stenosis. Peak systolic on the right is 180 and on the left is 270 Assessment & Plan Assessment & Plan (1) Bilateral carotid artery stenosis: Code(s): I65.23 - Occlusion and stenosis of bilateral carotid arteries Category: Medical Plan: In short patient has asymptomatic carotid disease. We have reviewed signs and symptoms of a stroke. We also discussed risk factor modification inclusive a healthy diet low in cholesterol. The patient will follow up with us with surveillance ultrasound of the carotids 1 year. Should there be any changes or signs or symptoms of a stroke we will be happy to see them back sooner. Thank you for allowing us to participate in this patient's care. If there are any questions or concerns please do not hesitate to contact us. Orders: Orders US carotid duplex BI 1 Year I65.23 - Occlusion and stenosis of bilateral carotid arteries Coding Level of Care Code Est Pt Level 4 (21524) Diagnoses Bilateral carotid artery stenosis I65.23
== END 2025-10-12 11:36 | disposition home or self-care (01) ==
LOC: HO.HVS 10:52
PROVIDERS: PCP Family Medicine; Visit Provider Surgery Vascular Surgery
DX: I65.23 Occlusion and stenosis of bilateral carotid arteries (principal)
CPT/HCPCS: 99214

== ENCOUNTER → 2025-10-12 10:51 | Outpatient (BNVA) | payer MEDICARE, SELFPAY | PROVIDERS: PCP Family Medicine; Visit Provider Surgery Vascular Surgery | DX: I65.23 Occlusion and stenosis of bilateral carotid arteries (principal) | CPT/HCPCS: 99212 ==